=== PATIENT | female | born 1970 | race Caucasian/White ===

== ENCOUNTER 2017-05-07 13:25 | Emergency (ER) | payer BC ==
[~2017-05-07 13:25] MED LIST: ISOVUE-370 76%-LOCM 1 ML ONE
[2017-05-07 15:04] LABS: #Basophils 0.1 thou/uL (0.0-0.2); #Eosinphils 0.5 thou/uL (0.0-0.7); #Lymphocytes 1.9 thou/uL (1.20-3.40); #Monocytes 0.8 thou/uL (0.11-0.59); #Neutrophils 4.1 thou/uL (1.40-6.50); %Basophils 1.1 % (0.0-1.0); %Eosinophils 6.6 % (0.0-10.0); %Lymphocytes 25.6 % (21.0-51.0); %Monocytes 11.1 % (0.0-10.0); %Neutrophils 55.6 % (42.0-75.0); Hemoglobin 12.7 g/dL (12.0-16.0); Mean Corpuscular HGB CONC 33.3 g/dL (32.0-36.0); Mean Corpuscular Volume 87.4 fl (81.0-99.0); Mean Platelet Volume 6.4 fL (7.4-10.4); Platelet Count 345 thou/uL (130-400); RBC Distribution Width 14.4 % (11.5-14.5); Red Blood Cell (RBC) Count 4.38 mill/uL (4.20-5.40); White Blood Cell (WBC) Count 7.4 thou/uL (4.8-10.8)
[2017-05-07 15:21] LABS: ALT (SGPT) 21 U/L (8-55); AST (SGOT) 22 U/L (5-34); Albumin 4.6 g/dL (3.5-5.0); Alkaline Phosphatase 54 U/L (40-150); Anion Gap 13 mmol/L (10-20); BUN (Urea Nitrogen) 18 mg/dL (7.0-18.7); Bilirubin, Total 0.3 mg/dL (0.2-1.2); CK (CPK) 117 U/L (29-168); Calc. Creatinine Clearance 0 mL/min (70-130); Calcium 9.8 mg/dL (7.8-10.44); Carbon Dioxide 22 mmol/L (22-29); Chloride 109 mmol/L (98-107); Estimated GFR-MDRD 71; Globulin 3.5 g/dL (2.4-3.5); Glucose 88 mg/dL (70-105); Protein, Total 8.1 g/dL (6.0-8.3); Sodium 140 mmol/L (136-145)
[2017-05-07 15:25] LABS: CKMB 1.1 ng/mL (0-6.6); Troponin I Less than 0.010 ng/mL (< 0.028)
--- NOTE | 2017-05-07 15:25 | RAD ---
SINGLE VIEW OF THE CHEST: COMPARISON: 08/10/16. HISTORY: Dyspnea. FINDINGS: A single view of the chest shows a normal-size cardiomediastinal silhouette. There is no evidence of consolidation, mass, or pleural effusion. IMPRESSION: No evidence of acute cardiopulmonary disease. POS: [facility]
[2017-05-07] MEDS ORDERED: Ondansetron HCl/PF 4 MG/2 ML Vial ONE (16:42)
--- NOTE | 2017-05-07 18:41 | RAD ---
SOFT TISSUE NECK: History: Throat pain, dyspnea. FINDINGS: There are some minimal arthritic changes of the cervical spine without disc narrowing. No retropharyn geal soft tissue swelling. The epiglottis is difficult to visualize as it is adherent to the adjacent soft tissues but I do not see any signs that would suggest epiglottis. No airway narrowing. IMPRESSION: Unremarkable soft tissue view of the neck. POS: [facility]
[2017-05-07] MEDS ORDERED: methylPREDNISolone Sod Succ/PF 125 MG/2 ML VIAL ONE (19:30)
[2017-05-07] MEDS ORDERED: Famotidine/PF 20 mg/2ml Vial ONE (19:30)
[2017-05-07] MEDS ORDERED: diphenhydrAMINE 50 MG CAP ONE (19:30)
[2017-05-07] MEDS ORDERED: diphenhydrAMINE 50 MG/ML VIAL ONE (19:31)
[2017-05-07 20:18] LABS: Troponin I Less than 0.010 ng/mL (< 0.028)
--- NOTE | 2017-05-07 21:15 | CT ---
ABDOMINAL CT WITH CONTRAST PELVIC CT WITH CONTRAST: Clinical history: Abdominal pain, pancreatitis. Comparison: None. FINDINGS: Evidence of prior cholecystectomy. There is low attenuation of the hepatic parenchyma which can be se en with a hepatic steatosis. Correlate clinically. There is homogeneous enhancement of the pancreas w ithout evidence of peripancreatic inflammation. No adrenal mass or hydronephrosis. Spleen is unremark able. Bowel is incompletely assessed without enteric contrast administration. There is no free air. I gonzález aorta is of normal caliber. Lung bases are clear. Imaged osseous structures are non-acute in ap pearance. There is a focal defect of the posterior medial left kidney which is chronic and may relate to sequellae from prior infarct or other inflammatory event. IMPRESSION: 1. No acute process is identified. 2. Additional details are described above. POS: [facility]
--- NOTE | 2017-05-12 16:58 | EKG ---
Test Reason : Blood Pressure : / mmHG Vent. Rate : 082 BPM Atrial Rate : 082 BPM P-R Int : 144 ms QRS Dur : 090 ms QT Int : 352 ms P-R-T Axes : 031 -15 080 degrees QTc Int : 411 ms Normal sinus rhythm Voltage criteria for left ventricular hypertrophy Nonspecific T wave abnormality Abnormal ECG Confirmed by ELIZABETH GONZALEZ ([id number]), offline editor NORBERTO COVARRUBIAS ([id number]) on 05/12/2017 4:58:21 PM Referred By: Confirmed By:ELIZABETH GONZALEZ
== END 2017-05-07 21:08 | disposition home or self-care (01) ==
LOC: ERS 13:25
DX: R07.89 Other chest pain (principal); J45.909 Unspecified asthma, uncomplicated; E05.90 Thyrotoxicosis, unspecified without thyrotoxic crisis or storm; F41.9 Anxiety disorder, unspecified; Z79.899 Other long term (current) drug therapy
CPT/HCPCS: 36415; 70360; 71045; 74177; 80053; 82550; 82553; 83690; 83880; 84443; 84484; 85025; 85379; 93005; 94760; 96361; 96374; 96375; J1200; J2270; J2405; J2930; S0028

== ENCOUNTER 2017-12-06 09:00 | Outpatient (CLI) | payer BC ==
--- NOTE | 2017-12-06 11:24 | CT ---
CT ABDOMEN WITH AND WITHOUT CONTRAST CT PELVIS WITH AND WITHOUT CONTRAST: (CT UROGRAM) DATE: 12-06-17 HISTORY: 47-year-old female with R31.0 gross hematuria. Comparison: Standard CT abdomen and pelvis with contrast, 05-07-17. Technique: No oral contrast. IV contrast: 100 mL Isovue 370 Precontrast scan, nephrographic/venous phase scan, and pyelographic/expiratory scan, of entire abdome n and pelvis. Coronal reconstruction of the pyelographic/expiratory phase scan. FINDINGS: There is architectural distortion and parenchymal defect at the lower pole of the left kidney, with t hin layer of surgical material. At the upper pole of the left kidney, there is a moderate-sized pare nchymal defect. There is no hydronephrosis or hydroureter. Again noted is the diffusely very low hepa tic attenuation representing fatty liver. No focal solid or cystic hepatic lesion. The abdominal aort a, right kidney, adrenals, pancreas, spleen, urinary bladder, and appendix are normal. No renal, uret eral, or bladder calculus. No solid or cystic renal mass lesion. No colonic diverticulosis. No small bowel dilation. Cholecystectomy clips in the gallbladder fossa. No destructive osseous lesion. No ple ural effusion. No interval change compared to prior CT. IMPRESSION: 1. Left renal upper pole parenchymal defect representing scar, such as from previous infarction or pr ior infection. 2. Left renal lower pole parenchymal defect due to previous surgical partial resection. 3. No evidence of neoplasm oor urolithiasis involving the genitourinary tract. 4. Hepatic steatosis. 5. Status post cholecystectomy. POS: [facility]
== END 2017-12-06 09:01 | disposition home or self-care (01) ==
LOC: CT 09:00
PROVIDERS: ATTEND Urology
DX: R31.0 Gross hematuria (principal); K76.0 Fatty (change of) liver, not elsewhere classified; Z90.49 Acquired absence of other specified parts of digestive tract; N28.9 Disorder of kidney and ureter, unspecified; Z98.890 Other specified postprocedural states
CPT/HCPCS: 74178

== ENCOUNTER 2018-01-23 13:04 | Outpatient (CLI) | payer BC | END 2018-01-23 13:05 | disposition home or self-care (01) | LOC: DTY/OP 13:04 | PROVIDERS: ATTEND Surgery | DX: G47.30 Sleep apnea, unspecified (principal); I10 Essential (primary) hypertension | CPT/HCPCS: 97802 ==

== ENCOUNTER 2018-02-20 14:30 | Inpatient (IN) | payer BC ==
[2018-03-06] MEDS ORDERED: Heparin 5,000 UNITS/ML VIAL ONE (09:25)
[2018-03-06] MEDS ORDERED: CEFAZOLIN 2 GM/50 ML BAG ONE (09:25)
[2018-03-06] MEDS ORDERED: Bupivacaine/Epinephrine 0.25% 30 ML VIAL ONE (10:03)
[2018-03-06] MEDS ORDERED: Fentanyl 100 MCG/2 ML VIAL ONE ×4 (10:05→12:58)
[2018-03-06] MEDS ORDERED: Midazolam HCl 2 mg/2 ml Vial ONE (10:10)
[2018-03-06] MEDS ORDERED: ePHEDrine/0.9% NaCl/PF SYRINGE 50 mg/10 ml ONE (11:07)
[2018-03-06] MEDS ORDERED: Ondansetron PF 4 MG/2 ML Vial ONE (11:07)
[2018-03-06] MEDS ORDERED: Glycopyrrolate 0.2 MG/ML 5 ML SYRINGE ONE (11:07)
[2018-03-06] MEDS ORDERED: Ketorolac Tromethamine 30 MG/ML VIAL ONE (11:07)
[2018-03-06] MEDS ORDERED: PHENYLEPHRINE-NS 100 MCG/ML 10 ML SYRINGE ONE (11:07)
[2018-03-06] MEDS ORDERED: PROPOFOL 200 MG/20 ML VIAL ONE (11:07)
[2018-03-06] MEDS ORDERED: Dexamethasone 20 MG/5 ML VIAL ONE (11:07)
[2018-03-06] MEDS ORDERED: Lidocaine 1% PF 5 ML VIAL ONE (11:07)
[2018-03-06] MEDS ORDERED: Succinylcholine Chloride 20 MG/ML 10 ml SYRINGE FS ONE (11:07)
[2018-03-06] MEDS ORDERED: SUGAMMADEX SODIUM 500 MG/5 ML VIAL ONE ×2 (11:49→12:10)
[2018-03-06] MEDS ORDERED: Dextrose 5% in Water 1,000 ML IV PRN (12:02)
[2018-03-06] MEDS ORDERED: diphenhydrAMINE 50 MG/ML VIAL IVP PRN ×2 (12:02→12:40)
[2018-03-06] MEDS ORDERED: Ondansetron PF 4 MG/2 ML Vial IVP PRN ×2 (12:02→12:40)
[2018-03-06] MEDS ORDERED: Hydrocodone-Acetamin 15 ML UDCUP PO PRN (12:02)
[2018-03-06] MEDS ORDERED: hydrALAZINE 20 MG/ML VIAL SLOW IVP PRN (12:02)
[2018-03-06] MEDS ORDERED: Dextrose 50% Abboject 50 ML SYRINGE SLOW IVP PRN (12:02)
[2018-03-06] MEDS ORDERED: Zolpidem Tartrate 5 MG TAB PO PRN (12:40)
[2018-03-06] MEDS ORDERED: fentaNYL Citrate/PF 2,000 MCG in Sodium Chloride 0.9% 60 ML IV PRN (12:40)
[2018-03-06] MEDS ORDERED: Ondansetron HCl/PF 4 MG/2 ML Vial IVP PRN (12:40)
[2018-03-06] MEDS ORDERED: diphenhydrAMINE 25 MG CAP PO PRN (12:40)
[2018-03-06] MEDS ORDERED: Naloxone HCl 0.4 mg/ml Vial IV PRN (12:40)
[2018-03-06] MEDS ORDERED: diphenhydrAMINE 50 MG/ML VIAL IM PRN (12:40)
[2018-03-06] MEDS ORDERED: Communication Order-Pharmacy FS SCH (12:45)
[2018-03-06 14:12] VITALS: BMI 42.0
[2018-03-06] MEDS: D5 1/2 NS w/20 mEq KCL 1,000 ML IV SCH ×2 (16:39→21:41)
[2018-03-06] MEDS: CEFAZOLIN 2 GM/50 ML BAG IVPB SCH (16:40)
[2018-03-06] MEDS: Ketorolac Tromethamine 30 MG/ML VIAL IVP SCH ×2 (16:43→23:09)
[2018-03-07] MEDS: CEFAZOLIN 2 GM/50 ML BAG IVPB SCH (01:05)
[2018-03-07] MEDS: D5 1/2 NS w/20 mEq KCL 1,000 ML IV SCH ×2 (03:16→09:40)
[2018-03-07 05:38] LABS: #Lymphocytes 1.6 thou/uL (1.20-3.40); #Monocytes 0.8 thou/uL (0.11-0.59); #Neutrophils 5.3 thou/uL (1.40-6.50); %Basophils 0.2 % (0.0-1.0); %Eosinophils 0.2 % (0.0-10.0); %Lymphocytes 20.3 % (21.0-51.0); %Monocytes 10.2 % (0.0-10.0); %Neutrophils 69.2 % (42.0-75.0); Hemoglobin 11.5 g/dL (12.0-16.0); Mean Corpuscular Hemoglobin 29.4 pg (27.0-31.0); Mean Corpuscular Volume 88.8 fL (78.0-98.0); Mean Platelet Volume 6.8 fL (7.4-10.4); Platelet Count 294 thou/uL (130-400); RBC Distribution Width 14.1 % (11.5-14.5); Red Blood Cell (RBC) Count 3.92 mill/uL (4.20-5.40); White Blood Cell (WBC) Count 7.7 thou/uL (4.8-10.8)
[2018-03-07 05:49] LABS: Anion Gap 10 mmol/L (10-20); BUN (Urea Nitrogen) 7 mg/dL (7.0-18.7); Calc. Creatinine Clearance 140 mL/min (70-130); Calcium 8.8 mg/dL (7.8-10.44); Carbon Dioxide 27 mmol/L (22-29); Chloride 105 mmol/L (98-107); Estimated GFR-MDRD 78; Glucose 108 mg/dL (70-105); Potassium 3.9 mmol/L (3.5-5.1); Sodium 138 mmol/L (136-145)
[2018-03-07] MEDS: Ketorolac Tromethamine 30 MG/ML VIAL IVP SCH (06:29)
[2018-03-07] MEDS ORDERED: Pantoprazole 40 MG VIAL IVP SCH (09:00)
[2018-03-07] MEDS ORDERED: Enoxaparin Sodium 40 MG/0.4 ML SYRINGE SC SCH (09:00)
[2018-03-07] MEDS ORDERED: diphenhydrAMINE 50 MG/ML VIAL IVP SCH (10:00)
[2018-03-07] MEDS ORDERED: Famotidine/PF 20 mg/2ml Vial IVPB SCH (10:00)
[2018-03-07 11:31] VITALS: BP 102/57; TEMP 97.9
--- NOTE | 2018-03-08 10:59 | DIS ---
DATE OF ADMISSION: 03/06/2018 DATE OF DISCHARGE: 03/07/2018 DISCHARGE DIAGNOSIS: Morbid obesity. PROCEDURES DURING ADMISSION: Laparoscopic sleeve gastrectomy and intraoperative esophagogastroscopy. HOSPITAL COURSE: The patient was admitted, taken to the operating room, where she underwent sleeve gastrectomy. Postoperatively, she has done well. She is tolerating liquids well. Her pain is controlled on oral medications. Vital signs are fine. We did not do the Gastrografin swallow due to her severe iodine allergy including shellfish allergy, so rather than put her to that risk and since she was doing well, elected not to do that procedure. Again, she is tolerating liquids well. She is discharged home on hydrocodone and Zofran. She will follow up with me in 2 weeks. Job ID: [id number]
--- NOTE | 2018-03-08 14:31 | OP ---
DATE OF PROCEDURE: 03/06/2018 PREOPERATIVE DIAGNOSIS: Morbid obesity. PROCEDURES PERFORMED: Laparoscopic lysis of adhesions, sleeve gastrectomy, and esophagogastroscopy. INDICATIONS FOR PROCEDURE: A 47-year-old female, morbidly obese, who was attempted multiple weight loss programs without success. FINDINGS: She had extensive intra-abdominal adhesions due to a laparoscopic partial nephrectomy, cholecystectomy, and a previous hysterectomy. A 38-Swiss bougie was used. DESCRIPTION OF PROCEDURE: After informed consent was obtained, the patient was taken to the operating room, given general endotracheal anesthesia, placed in the supine position. Abdomen was prepped and draped in the usual fashion. Local anesthesia was infiltrated subcutaneously and deep. A 12 mm incision was performed approximately 8 inches below the xiphoid slight to the left. Veress needle was inserted. Drop test performed. Pneumoperitoneum was carried to a volume of 2 L of carbon dioxide. Utilizing a bladeless 12 mm trocar and 0 degree laparoscope, direct visual examination of the abdominal cavity was performed. Pneumoperitoneum was then created to a pressure of 15 mmHg and the patient was placed in steep reverse Trendelenburg position. The abdominal wall was completely socked in with adhesions, so I had to put an extra 5 mm port in the right upper quadrant to take down adhesions from the abdominal wall, so that I could put the trocars in. Once the adhesions were all lysed, we put a 12 mm port 8 cm below the xiphoid slight to the left and then another 12 mm port in the left upper quadrant, left lateral abdomen and then we already had the right lateral abdomen, but because of the lysis of adhesions, trocar positioning was a little off. The patient was placed in steep reverse Trendelenburg position. Henrik liver retractor inserted. The left lobe of the liver retracted superiorly. The omentum was taken off the greater curvature 5 cm from the pylorus utilizing a LigaSure. Short gastrics divided with a LigaSure. defined with a LigaSure. A 38-Swiss bougie inserted directed into the antrum. The linear 60 mm green load stapler used to divide the antrum to the bougie, gold load along the bougie, and a series of bougies through the angle of His. Intraoperative endoscopy was performed. A video endoscope inserted under direct vision and advanced into the sleeve. The staple line inspected. There was no bleeding. Staple line then tested by inflating the new stomach with pressurized there was no air leak. Stomach was decompressed. Scope was removed. Remnants of the stomach were removed from the abdomen through the left lateral port site. The fascia was closed with 0 Vicryl suture in the GraNee needle. Hemostasis assured. The abdomen irrigated. Irrigation fluid removed. Trocars and retractors were removed. Skin was closed with interrupted 4-0 Rapide. Dermabond was applied. The patient tolerated the procedure well, transferred to recovery in good condition. Job ID: [id number]
== END 2018-03-07 15:08 | disposition home or self-care (01) | DRG 621 ==
LOC: SURG A 03-06 08:49 → SJJU 03-06 13:44
PROVIDERS: ADMIT Surgery; ATTEND Surgery
PROC: 0DB64Z3 Excision of Stomach, Percutaneous Endoscopic Approach, Vertical (ICD-10-PCS; principal; 2018-03-06)
DX: E66.01 Morbid (severe) obesity due to excess calories (principal); Z91.041 Radiographic dye allergy status; Z91.013 Allergy to seafood; Z68.41 Body mass index [BMI] 40.0-44.9, adult; I10 Essential (primary) hypertension
CPT/HCPCS: 36415; 80048; 85025; 88307; 88312; 94760; C9113; J1100; J1644; J1650; J1885; J2001; J2250; J2405; J2704; J2920; J3010; J7050

== ENCOUNTER 2018-02-20 14:54 | Outpatient (CLI) | payer BC ==
[2018-02-20 16:29] LABS: #Eosinphils 0.3 thou/uL (0.0-0.7); #Lymphocytes 2.2 thou/uL (1.20-3.40); #Monocytes 0.8 thou/uL (0.11-0.59); #Neutrophils 5.9 thou/uL (1.40-6.50); %Basophils 0.4 % (0.0-1.0); %Eosinophils 3.7 % (0.0-10.0); %Lymphocytes 23.3 % (21.0-51.0); %Monocytes 8.6 % (0.0-10.0); Hemoglobin 12.5 g/dL (12.0-16.0); Mean Corpuscular HGB CONC 31.3 g/dL (32.0-36.0); Mean Corpuscular Hemoglobin 27.9 pg (27.0-31.0); Mean Corpuscular Volume 89.1 fL (78.0-98.0); Mean Platelet Volume 6.7 fL (7.4-10.4); Platelet Count 367 thou/uL (130-400); RBC Distribution Width 14.1 % (11.5-14.5); Red Blood Cell (RBC) Count 4.49 mill/uL (4.20-5.40); White Blood Cell (WBC) Count 9.3 thou/uL (4.8-10.8)
[2018-02-20 16:42] LABS: Hemoglobin A1c 6.4 % (4.0-6.0)
[2018-02-20 17:02] LABS: ALT (SGPT) 19 U/L (8-55); AST (SGOT) 18 U/L (5-34); Albumin 4.4 g/dL (3.5-5.0); Alkaline Phosphatase 68 U/L (40-150); Anion Gap 11 mmol/L (10-20); BUN (Urea Nitrogen) 21 mg/dL (7.0-18.7); Bilirubin, Direct 0.1 mg/dL (0.1-0.3); Bilirubin, Total 0.3 mg/dL (0.2-1.2); Calc. Creatinine Clearance 0 mL/min (70-130); Calcium 9.3 mg/dL (7.8-10.44); Carbon Dioxide 25 mmol/L (22-29); Chloride 107 mmol/L (98-107); Estimated GFR-MDRD 76; Globulin 3.4 g/dL (2.4-3.5); Glucose 94 mg/dL (70-105); Protein, Total 7.8 g/dL (6.0-8.3); Sodium 139 mmol/L (136-145)
--- NOTE | 2018-02-20 17:28 | RAD ---
TWO VIEW CHEST SERIES: 02/20/18 INDICATION: Preoperative evaluation. FINDINGS: The lungs are hypoinflated without consolidation. No effusion or pneumothorax. The cardiac silhouette is accentuated by shallow depth of inspiration. There is degenerative changes of the osseous structu res. Metallic clips seen at the right abdomen. IMPRESSION: Shallow depth of inspiration without lobar consolidation. POS: [facility]
== END 2018-02-20 14:55 | disposition home or self-care (01) ==
LOC: LABBT 14:54
PROVIDERS: ATTEND Surgery
DX: Z01.818 Encounter for other preprocedural examination (principal); E66.01 Morbid (severe) obesity due to excess calories
CPT/HCPCS: 71046; 80053; 80076; 83036; 85025

== ENCOUNTER 2018-07-10 08:27 | Outpatient (CLI) | payer BC ==
--- NOTE | 2018-07-16 13:34 | MMO ---
Bilateral MAMMO Bilat Screen [facility]. CLINICAL HISTORY: Patient is 48 years old and is seen for screening. The patient has the following family history of breast cancer: maternal aunt, at age 60. The patient has no personal history of cancer. VIEWS: The views performed were: bilateral craniocaudal with tomosynthesis and bilateral mediolateral oblique with tomosynthesis. FILMS COMPARED: The present examination has been compared to prior imaging studies performed at 07/03/2017, and at [facility] on 12/05/2005, 12/14/2005 and 07/22/2010. MAMMOGRAM FINDINGS: There are scattered fibroglandular densities. There are no suspicious masses, suspicious calcifications, or new areas of architectural distortion. IMPRESSION: THERE IS NO MAMMOGRAPHIC EVIDENCE OF MALIGNANCY. A ROUTINE FOLLOW-UP MAMMOGRAM IN 1 YEAR IS RECOMMENDED. THE RESULTS OF THIS EXAM WERE SENT TO THE PATIENT. ACR BI-RADS Category 1 - Negative MAMMOGRAPHY NOTE: 1. A negative mammogram report should not delay a biopsy if a dominant of clinically suspicious mass is present. 2. Approximately 10% to 15% of breast cancers are not detected by mammography. 3. Adenosis and dense breasts may obscure an underlying neoplasm.
== END 2018-07-10 08:28 | disposition home or self-care (01) ==
LOC: BICMAMMO 08:27
PROVIDERS: ATTEND Internal Medicine
DX: Z12.31 Encounter for screening mammogram for malignant neoplasm of breast (principal); Z80.3 Family history of malignant neoplasm of breast
CPT/HCPCS: 77063; 77067

== ENCOUNTER 2018-08-15 13:32 | Outpatient (CLI) | payer BC ==
--- NOTE | 2018-08-15 13:47 | RAD ---
CHEST 2 VIEWS: Date: 08/15/18 HISTORY: Preoperative evaluation. COMPARISON: 02/20/18. FINDINGS: Heart size is within normal limits. Lungs are clear. IMPRESSION: No acute intrathoracic disease. Stable from prior study. POS: [facility]
== END 2018-08-15 13:33 | disposition home or self-care (01) ==
LOC: RAD 13:32
PROVIDERS: ATTEND Internal Medicine
DX: R06.00 Dyspnea, unspecified (principal)
CPT/HCPCS: 71046

== ENCOUNTER 2019-01-26 12:15 | Inpatient (IN) | payer BC ==
[2019-01-26 13:04] LABS: #Basophils 0.1 thou/uL (0.0-0.2); #Eosinphils 0.3 thou/uL (0.0-0.7); #Lymphocytes 2.2 thou/uL (1.20-3.40); #Monocytes 0.7 thou/uL (0.11-0.59); %Basophils 1.3 % (0.0-1.0); %Eosinophils 5.2 % (0.0-10.0); %Lymphocytes 34.6 % (21.0-51.0); %Monocytes 10.6 % (0.0-10.0); %Neutrophils 48.3 % (42.0-75.0); Hemoglobin 12.5 g/dL (12.0-16.0); Mean Corpuscular HGB CONC 33.6 g/dL (32.0-36.0); Mean Corpuscular Hemoglobin 30.6 pg (27.0-31.0); Mean Platelet Volume 6.6 fL (7.4-10.4); Platelet Count 294 thou/uL (130-400); RBC Distribution Width 11.8 % (11.5-14.5); Red Blood Cell (RBC) Count 4.08 mill/uL (4.20-5.40); White Blood Cell (WBC) Count 6.3 thou/uL (4.8-10.8)
[2019-01-26 13:18] LABS: ALT (SGPT) 10 U/L (8-55); AST (SGOT) 12 U/L (5-34); Albumin 4.4 g/dL (3.5-5.0); Alkaline Phosphatase 58 U/L (40-110); Anion Gap 11 mmol/L (10-20); BUN (Urea Nitrogen) 11 mg/dL (7.0-18.7); Bilirubin, Total 0.3 mg/dL (0.2-1.2); CK (CPK) 88 U/L (29-168); Calc. Creatinine Clearance 0 mL/min (70-130); Calcium 9.5 mg/dL (7.8-10.44); Carbon Dioxide 24 mmol/L (22-29); Chloride 107 mmol/L (98-107); Estimated GFR-MDRD Greater than 90; Globulin 3.1 g/dL (2.4-3.5); Glucose 72 mg/dL (70-105); Potassium 3.7 mmol/L (3.5-5.1); Protein, Total 7.5 g/dL (6.0-8.3); Sodium 138 mmol/L (136-145)
--- NOTE | 2019-01-26 14:07 | RAD ---
RADIOGRAPH CHEST 1 VIEW: DATE: 01/26/2019 HISTORY: 48-year-old female with chest pain FINDINGS: There are no airspace densities, pulmonary edema, pneumothorax, or cardiomegaly. The lateral costophr enic angles are sharp. IMPRESSION: No acute cardiopulmonary findings.
[2019-01-26] MEDS ORDERED: Aspirin Chewable 81 MG TAB ONE (14:25)
[2019-01-26] MEDS ORDERED: Ondansetron ODT 4 MG TAB SL PRN (16:04)
[2019-01-26] MEDS ORDERED: Ondansetron PF 4 MG/2 ML Vial IVP PRN (16:04)
[2019-01-26 16:27] VITALS: BMI 34.4
[2019-01-26] MEDS: Sodium Chloride 0.9% 1,000 ML IV SCH (17:01)
[2019-01-26 17:06] LABS: Troponin I Less than 0.010 ng/mL (< 0.028)
[2019-01-26 19:58] LABS: Troponin I Less than 0.010 ng/mL (< 0.028)
[2019-01-26] MEDS ORDERED: Acetaminophen 325 MG TAB PO PRN (20:44)
[2019-01-26] MEDS ORDERED: Lorazepam 0.5 MG TAB PO SCH (23:30)
[2019-01-27] MEDS: Sodium Chloride 0.9% 1,000 ML IV SCH ×3 (03:57→22:31)
[2019-01-27] MEDS ORDERED: Senokot S 8.6-50 MG TAB PO PRN (08:45)
[2019-01-27] MEDS ORDERED: FLU VACC QS2019-20(6MOS UP)/PF 60 MCG/0.5 ML SYRINGE IM ONE (09:00)
[2019-01-27 09:03] LABS: #Basophils 0.1 thou/uL (0.0-0.2); #Eosinphils 0.3 thou/uL (0.0-0.7); #Lymphocytes 1.6 thou/uL (1.20-3.40); #Monocytes 0.3 thou/uL (0.11-0.59); #Neutrophils 2.2 thou/uL (1.40-6.50); %Basophils 1.5 % (0.0-1.0); %Eosinophils 5.9 % (0.0-10.0); %Lymphocytes 35.9 % (21.0-51.0); %Monocytes 6.9 % (0.0-10.0); %Neutrophils 49.7 % (42.0-75.0); Hemoglobin 11.8 g/dL (12.0-16.0); Mean Corpuscular HGB CONC 32.9 g/dL (32.0-36.0); Mean Corpuscular Hemoglobin 29.9 pg (27.0-31.0); Mean Platelet Volume 6.5 fL (7.4-10.4); Platelet Count 271 thou/uL (130-400); RBC Distribution Width 11.7 % (11.5-14.5); Red Blood Cell (RBC) Count 3.94 mill/uL (4.20-5.40); White Blood Cell (WBC) Count 4.4 thou/uL (4.8-10.8)
[2019-01-27 09:17] LABS: Anion Gap 10 mmol/L (10-20); BUN (Urea Nitrogen) 8 mg/dL (7.0-18.7); Calc. Creatinine Clearance 141 mL/min (70-130); Calcium 9.3 mg/dL (7.8-10.44); Carbon Dioxide 26 mmol/L (22-29); Cardiac Risk 2.6 (Less than 4.5); Chloride 108 mmol/L (98-107); Cholesterol 179 mg/dl (< 200 Desired); Estimated GFR-MDRD Greater than 90; Glucose 78 mg/dL (70-105); HDL Cholesterol 68 mg/dL (>60 Neg Risk); LDL Cholesterol, Calculated 90 mg/dL; Potassium 3.8 mmol/L (3.5-5.1); Sodium 140 mmol/L (136-145); Triglycerides 107 mg/dL (Less than 150)
[2019-01-27] MEDS: Enoxaparin Sodium 40 MG/0.4 ML SYRINGE SC SCH (09:38)
[2019-01-27] MEDS: Famotidine 20 MG TAB PO SCH ×2 (09:38→20:48)
--- NOTE | 2019-01-27 15:12 | HP ---
The patient was seen and evaluated on 01/27/2019, at 0800. PRIMARY CARE PHYSICIAN: Dr. Joyner. AUTOMOTIVE TECHNICIAN INSTRUCTOR: Dr. Borden. CHIEF COMPLAINT: Chest pain, lightheadedness, blurred vision. HISTORY OF PRESENT ILLNESS: Ms. Sainz is a 48-year-old female, who reported to the emergency room on 01/26/2019, for evaluation of chest pain. Reports that she has been feeling lightheaded, has had blurred vision on and off for several weeks. Reports chest pain to left upper chest, and reports that her blood pressure was low at home when she took it. Reports that she was given medication for hypertension in the past, but has not had to take it for several months. Reports that she has had a gastric sleeve surgery and has lost approximately 50 pounds in the last year. The patient reports that she has had a heart catheterization 5 years ago and does report that Dr. Joyner had sent her to Dr. Borden in the next couple of weeks to have the chest pain, lightheadedness, and dizziness evaluated. EKG in the emergency room showed normal sinus rhythm, beats per minute 60, conduction normal, nonspecific EKG, moderate voltage criteria for LVH. Chest films are negative for any acute findings. The patient had a heart score of 5, admitted to the observation unit for further management. REVIEW OF SYSTEMS: Reports chest pains. Denies any dyspnea or dyspnea on exertion. Denies cough, shortness of breath, or wheezing. Denies abdominal pain. Reports dizziness or lightheadedness. Denies a headache. Reports history of anxiety. Reports chest pain radiates to both arms. Reports right arm pain. All other systems are reviewed and are negative unless mentioned in the HPI. PAST MEDICAL HISTORY: coronary artery disease, COPD, asthma. Past medical history of hypertension, medication has been stopped. PAST SURGICAL HISTORY: Partial kidney removal on the left, cholecystectomy, hysterectomy, orthopedic surgery on the left knee, and gastric sleeve surgery. PSYCHIATRIC HISTORY: Anxiety. SOCIAL HISTORY: Denies any drug or alcohol. No smoking history. KNOWN ALLERGIES: 1. Celebrex. 2. Shellfish. 3. Sumatriptan. CURRENT MEDICATIONS: 1. Biotin 5000 mcg p.o. daily. 2. Calcium 1 tablet p.o. daily. 3. Vitamin D3 of 5000 units p.o. daily. 4. EpiPen 0.3 mg IM p.r.n. 5. Estrace 1 mg p.o. daily. 6. Fenofibrate 145 mg p.o. at bedtime. 7. Breo 1 inhalation p.o. p.r.n. 8. Levothyroxine 175 mcg p.o. q.a.m. 9. Lorazepam 0.5 to 1 tablet p.o. at bedtime. 10. Multivitamin 1 tablet p.o. daily. 11. Protonix 40 mg p.o. daily. PHYSICAL EXAMINATION: VITAL SIGNS: Temperature is 98.8, pulse is 56, respirations are 20, pO2 saturations are 98% on room air, blood pressure 125/58. CONSTITUTIONAL: The patient is oriented to person, place, and time. Does not appear in any distress. HEENT: Head is atraumatic and normocephalic. Pupils are equally round and reactive to light. Eyelids are normal to inspection. ENT; mouth exam is normal. Mucous membranes are moist. NECK: Normal range of motion. Trachea is midline. RESPIRATORY/CHEST: Breath sounds are clear. Chest expansion is equal. CARDIOVASCULAR: Regular heart rate and rhythm. Heart sounds are normal. ABDOMEN: Soft and nontender. Bowel sounds are heard. No peritoneal signs. BACK: Normal range of motion. No tenderness. EXTREMITIES: Upper extremities; normal inspection. Normal range of motion. Radial pulses are normal. Lower extremities; normal inspection. No calf tenderness. On inspection, there are normal pulses. Pedal pulses are intact. There is no edema noted. NEUROLOGIC: The patient is oriented to person, place, and time. Speech is normal. SKIN: Warm, dry, and normal in color. PERTINENT LABORATORY DATA: White blood cell count 6.3, hemoglobin 12.5, hematocrit 37.1, platelet count 294. D-dimer less than 0.27. Chemistry is unremarkable. Troponins x3 are undetectable. ASSESSMENT AND PLAN: 1. Chest pain. The patient had sustained bradycardia during this hospitalization with pulse in the 40s. Troponins x3 were undetectable. EKG was nonspecific; however, we will ask Dr. Borden to consult. The patient reports that she has had an appointment with Dr. Borden in February, but due to the bradycardia, we will ask his recommendations prior to ordering a stress test, etc. 2. . We will check a TSH and free T4. 3. Asthma/chronic obstructive pulmonary disease. We will restart home medications, neb treatments p.r.n. as needed. 4. Anxiety. Restart home medications. She takes lorazepam p.o. at bedtime. 5. Deep venous thrombosis and gastrointestinal prophylaxes have been started. 6. Hospital course dependent on clinical findings. Job ID: [id number]
--- NOTE | 2019-01-27 15:53 | NM ---
Stress only myocardial perfusion scan: 01/27/2019 COMPARISON: None HISTORY: Chest pain TECHNIQUE: SPECT imaging of the left ventricular myocardium obtained during stress following the intr avenous administration of 28.8 mCi technetium 99m labeled sestamibi. FINDINGS: Stress imaging demonstrates no perfusion defect. Left ventricular wall motion is normal. Le ft ventricular ejection fraction is estimated at 67% with an EDV of 99 mL and ESV of 32 mL. IMPRESSION: Unremarkable stress only myocardial perfusion scan.
--- NOTE | 2019-01-27 16:41 | CON ---
DATE OF CONSULTATION: HISTORY OF PRESENT ILLNESS: The patient is a 48-year-old woman, who presents for evaluation of chest discomfort and dizziness. The patient was seen for evaluation of chest pain in June of 2016. She underwent at that time a cardiac evaluation including cardiac catheterization that revealed normal left ventricular systolic function with a mildly dilated ventricle. She also was found to have normal coronary arteries. The patient subsequently underwent a bariatric surgery approximately a year ago. The patient reports that she subsequently has continued to have left-sided chest discomfort. This can last up to 30 minutes. The patient states that it occurs on a frequent basis. The patient was tried in the past on Ranexa, which did not seem to help her discomfort. The patient also reports being very lightheaded and dizzy. She states that whenever her blood pressure is low , she feels extremely weak. PAST MEDICAL HISTORY: 1. Hypertension. 2. Asthma. 3. Migraine headaches. 4. Fatty liver disease. 5. Anxiety. PAST SURGICAL HISTORY: Cholecystectomy, hysterectomy, lap band surgery, laparoscopic nephrectomy, and arthroscopy. ALLERGIES: CELEBREX, IODINE, AND FOR ANTI-MIGRAINE HEADACHES. FAMILY HISTORY: There is a strong family history of heart disease. REVIEW OF SYSTEMS: A 10-point system is otherwise unremarkable except for noticing increasing dyspnea. PHYSICAL EXAMINATION: VITAL SIGNS: Her sitting blood pressure 131/63, standing was 131/64, and supine was 141/67. GENERAL: This is an obese woman, who is anxious with a blood pressure of 100/ 55. NECK: Showed no jugular venous distention. LUNGS: Clear to auscultation. HEART: Regular rate and rhythm. Normal S1 and S2. No murmurs. ABDOMEN: Distended. EXTREMITIES: Showed trace edema. VASCULAR: Radial pulses are 2+. LABORATORY DATA: Sodium was 140, potassium 3.8, chloride 108, bicarbonate 26, BUN 10, creatinine was 0.66. Her TSH was 0.03. Her white blood cell count is 4.4, hemoglobin 11.8, hematocrit 35.9, platelets 271. EKG revealed her to have normal sinus rhythm with moderate voltage criteria for LVH and T-wave abnormality suggestive of ischemia. IMPRESSION: 1. Chest pain with some features suggestive of angina. 2. Dizziness suggestive of orthostasis. 3. History of normal coronary arteries. 4. History of anxiety. 5. Hypotension. PLAN: This patient presents with chest discomfort. EKG shows a slight change from a previous electrocardiogram. Her chest pain has some features suggestive of angina. We would recommend stress testing to see if there is any evidence of ischemia. The patient also was very lightheaded and dizzy. She has shown mild bradycardia on her telemetry monitoring. We will continue to follow. We will recheck orthostatic blood pressures. We will follow this patient with you through her hospitalization. Job ID: [id number] MTDD
[2019-01-27] MEDS: Acetaminophen 325 MG TAB PO PRN ×2 (18:26→22:30)
[2019-01-27] MEDS ORDERED: Regadenoson 0.4 MG/5 ML SYRINGE ONE (20:25)
[2019-01-27] MEDS: Lorazepam 0.5 MG TAB PO SCH (20:48)
[2019-01-28 05:29] LABS: #Basophils 0.1 thou/uL (0.0-0.2); #Eosinphils 0.4 thou/uL (0.0-0.7); #Lymphocytes 1.8 thou/uL (1.20-3.40); #Monocytes 0.4 thou/uL (0.11-0.59); %Basophils 1.1 % (0.0-1.0); %Eosinophils 7.1 % (0.0-10.0); %Lymphocytes 31.6 % (21.0-51.0); %Neutrophils 53.2 % (42.0-75.0); Mean Corpuscular HGB CONC 33.9 g/dL (32.0-36.0); Mean Corpuscular Hemoglobin 30.8 pg (27.0-31.0); Mean Corpuscular Volume 90.8 fL (78.0-98.0); Mean Platelet Volume 6.6 fL (7.4-10.4); Platelet Count 274 thou/uL (130-400); RBC Distribution Width 11.7 % (11.5-14.5); Red Blood Cell (RBC) Count 3.88 mill/uL (4.20-5.40); White Blood Cell (WBC) Count 5.7 thou/uL (4.8-10.8)
[2019-01-28 05:47] LABS: Anion Gap 10 mmol/L (10-20); BUN (Urea Nitrogen) 10 mg/dL (7.0-18.7); Calc. Creatinine Clearance 133 mL/min (70-130); Calcium 9.2 mg/dL (7.8-10.44); Carbon Dioxide 26 mmol/L (22-29); Chloride 108 mmol/L (98-107); Estimated GFR-MDRD 89; Glucose 75 mg/dL (70-105); Potassium 3.9 mmol/L (3.5-5.1); Sodium 140 mmol/L (136-145)
[2019-01-28] MEDS: Levothyroxine 175 MCG TAB PO SCH (06:21)
[2019-01-28] MEDS: Estradiol 1 MG TAB PO SCH (09:40)
[2019-01-28] MEDS: Enoxaparin Sodium 40 MG/0.4 ML SYRINGE SC SCH (09:40)
[2019-01-28] MEDS: Famotidine 20 MG TAB PO SCH ×2 (09:40→21:10)
[2019-01-28] MEDS: Acetaminophen 325 MG TAB PO PRN ×3 (10:30→21:10)
--- NOTE | 2019-01-28 14:23 | PDOC.HOSPP ---
- Subjective Encounter Date: 01/28/19 Encounter Time: 14:22 Subjective: in the stress test - Objective Vital Signs & Weight: Vital Signs (12 hours) Temp Pulse Resp BP BP BP BP 01/28/19 11:31 98 F 50 L 16 01/28/19 10:05 55 L 114/58 L 118/56 L 01/28/19 07:11 98.1 F 62 14 123/69 01/28/19 04:30 62 18 109/56 L BP Pulse Ox 01/28/19 11:31 100 01/28/19 10:05 122/58 L 01/28/19 07:11 99 01/28/19 04:30 98 Weight Weight 188 lb 4.8 oz I&O: 01/27/19 01/28/19 01/29/19 06:59 06:59 06:59 Intake Total 1600 1540 Balance 1600 1540 Result Diagrams: 01/28/19 04:52 01/28/19 04:52 Hospitalist ROS - Medication Medications: Active Medications Generic Name Dose Route Start Last Admin Trade Name Lazq PRN Reason Stop Dose Admin Acetaminophen 650 mg 01/27/19 08:45 01/28/19 10:30 Tylenol PO 650 mg Q4H PRN Administration Headache/Fever/Mild Pain (1-3) Enoxaparin Sodium 40 mg 01/27/19 09:00 01/28/19 09:40 Lovenox SC 40 mg 0900 AMANUEL Administration Estradiol 1 mg 01/28/19 09:00 01/28/19 09:40 Estrace PO 1 mg DAILY AMANUEL Administration Famotidine 20 mg 01/27/19 09:00 01/28/19 09:40 Pepcid PO 20 mg BID AMANUEL Administration Levothyroxine Sodium 175 mcg 01/28/19 06:00 01/28/19 06:21 Synthroid PO 175 mcg 0600 AMANUEL Administration Lorazepam 0.5 mg 01/27/19 21:00 01/27/19 20:48 Ativan PO 0.5 mg HS AMANUEL Administration Pantoprazole Sodium 40 mg 01/28/19 09:00 01/28/19 09:40 Protonix PO 40 mg DAILY AMANUEL Administration Sodium Chloride 10 ml 01/27/19 09:00 01/28/19 09:41 Flush - Normal Saline IVF Not Given Q12HR AMANUEL - Exam General Appearance: NAD, awake alert, ill appearing Eye: PERRL, anicteric sclera, scleral icterus ENT: normocephalic atraumatic, no oropharyngeal lesions, moist mucosa, dry oral mucosa Neck: supple, symmetric, no JVD, no thyromegaly, no lymphadenopathy, no carotid bruit, JVD Heart: RRR, no murmur, no gallops, no rubs, normal peripheral pulses, irregular , diminshed peripheral pulses, murmur present, II/IV, III/IV Respiratory: CTAB, no wheezes, no rales, no ronchi, normal chest expansion, no tachypnea, normal percussion, rales, rhonchi, tachypneic, wheezes Gastrointestinal: soft, non-tender, non-distended, normal bowel sounds, no palpable masses, no hepatomegaly, no splenomegaly, no bruit, no guarding, no rigidity, tender to palpation, distended, diminished bowl sounds, voluntary guarding Extremities: no cyanosis, no clubbing, no edema, 1+ LE edema, 2+ LE edema, clubbing Skin: normal turgor, no lesions, no rashes, tenting Neurological: cranial nerve grossly intact, normal sensation to touch, no weakness, no focal deficits, no new deficit, facial droop, hemiplegia, speech deficit, vision deficit Musculoskeletal: normal tone, normal strength, no muscle wasting, generalized weakness, diffuse muscle atrophy Hosp A/P (1) Chest pain Code(s): R07.9 - CHEST PAIN, UNSPECIFIED Status: Acute (2) Bradycardia Code(s): R00.1 - BRADYCARDIA, UNSPECIFIED Status: Acute - Plan plan discussed w/ family (await stress test, further planning as per cardiology)
[2019-01-28] MEDS: Midodrine HCl 5 MG TAB PO SCH ×2 (14:36→21:10)
[2019-01-28] MEDS ORDERED: Citalopram 20 MG TAB PO SCH (16:45)
--- NOTE | 2019-01-28 17:46 | CON ---
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 Her problems are; 1. Chronotropic incompetence. a. Marked bradycardia in absence of AV mary blocking and negative chronotropic agents in the 40-50s. 2. Orthostatic hypotension. 3. No history of structural heart disease with negative left heart catheterization in 06/2016, normal LVEF, mildly dilated left ventricle. 4. History of morbid obesity status post gastric bypass surgery. 5. Migraine headaches. 6. Fatty liver disease. 7. History of asthma. 8. Anxiety. ALLERGIES: CELEBREX AND IODINE. MEDICATIONS AT HOME: 1. Levothyroxine. 2. Lorazepam. 3. Estradiol. 4. EpiPen. 5. Fenofibrate. 6. Cholecalciferol. 7. Fluticasone. 8. Pantoprazole. 9. Multivitamin. 10. Calcium. 11. Biotin. SUBJECTIVE: Ms. Sainz is here due to her chest discomfort and dizziness. She was evaluated by Dr. Borden with a nuclear stress test and was found to be negative. While on the floor, she continues to complain of significant malaise, fatigue, and dizziness spell. She does not pass out completely. She has no neurological deficits. No focalizing symptoms. No stroke-like symptoms. No PND or orthopnea. REVIEW OF SYSTEMS: Rest of 12-point review of system otherwise unremarkable. PAST HISTORY: Significant for; 1. COPD. 2. Asthma. 3. Morbid obesity. 4. Hypertension, which in the past she has not been on medications for that reason she has low blood pressures. SURGICAL HISTORY: Significant for; 1. Partial kidney removal in a left. 2. Cholecystectomy. 3. Hysterectomy. 4. Orthopedic surgery on the left knee. 5. Gastric sleeve surgery with subsequent 50-pound weight loss last year. SOCIAL HISTORY: The patient denies smoking, EtOH, or drug abuse. OBJECTIVE DATA: VITAL SIGNS: Blood pressure is 114/58 sitting, standing 118/56 , and supine 122/58, blood pressures ranging 109/56 down to 98/56 are noted. GENERAL: An alert and oriented woman, in no apparent distress. NECK: Supple. Jugular veins not distended. CHEST: Coarse without crackles. HEART: Sounds are regular rate and rhythm. No murmur or gallop. ABDOMEN: Benign. Bowel sounds positive. EXTREMITIES: Lower extremities without edema, clubbing, or cyanosis. Pulses are adequate. NEUROLOGIC: Nonfocal. MUSCULOSKELETAL: Without joint swelling or deformity. SKIN: Without rash. DATABASE: EKG is reviewed, revealing sinus rhythm, rate of 60 beats per minute. Subsequent telemetry strips revealed episodic sinus bradycardia around 50 beats per minute. LABORATORY DATA: White count 5.7, hemoglobin 12, and platelet count is 274. Sodium 140, potassium 3.9, BUN 10, and creatinine 0.7. TSH is 0.034 and free T4 is normal range at 1.24. The troponin levels are 0.01 x2. ASSESSMENT AND PLAN: Ms. Sainz is a very pleasant 48-year-old woman with history of morbid obesity and 50-pound weight loss since. She has lower blood pressures and significant fatigue and lightheadedness noted. She also has thyroid disease, although her thyroid levels have been reasonable in the recent past. Her free T4 is normal. TSH is in near normal range on the lower end. Her symptoms are possibly related to mild dysautonomia. Her blood pressure has been stable on repeated orthostatic blood pressure measurements, but she claims that she gets more fatigued and dizzy after ambulation. She has not passed out yet. Her heart rate is clear without racing with ambulation very high. We discussed potential treatment options. I think adding midodrine to her regimen could help us to keep the blood pressure is in adequate range. If the symptoms persist despite a pacing could be reasonable option. On the other hand, we discussed potential risks including pacemaker malfunctions, lead fractures in the future, infection, bleeding, pneumothorax, tamponade. We will also detailed. She understands. We will re-evaluate her after medical therapy tomorrow. If the symptoms persist, we will proceed with pacemaker implant. She understands and willing to proceed. Thank you again for letting me to participate in the care of this patient. Job ID: [id number] [facility]
[2019-01-28] MEDS: Lorazepam 0.5 MG TAB PO SCH (21:10)
[2019-01-29] MEDS: Levothyroxine 175 MCG TAB PO SCH (05:10)
[2019-01-29] MEDS: diphenhydrAMINE 25 MG CAP PO PRN (05:43)
[2019-01-29] MEDS ORDERED: Famotidine 20 MG TAB PO SCH ×2 (08:15→16:45)
[2019-01-29] MEDS ORDERED: diphenhydrAMINE 50 MG CAP PO SCH ×2 (08:15→16:45)
[2019-01-29] MEDS ORDERED: predniSONE 50 MG TAB PO SCH ×2 (08:15→16:45)
[2019-01-29] MEDS: Famotidine 20 MG TAB PO SCH ×2 (09:02→21:38)
[2019-01-29] MEDS: Enoxaparin Sodium 40 MG/0.4 ML SYRINGE SC SCH (09:02)
[2019-01-29] MEDS: Estradiol 1 MG TAB PO SCH (09:03)
[2019-01-29] MEDS: Citalopram 20 MG TAB PO SCH (09:04)
[2019-01-29] MEDS: Midodrine HCl 5 MG TAB PO SCH ×3 (09:04→21:39)
[2019-01-29] MEDS ORDERED: Iopamidol 370 76% 50 ML VIAL FS ONE (09:20)
--- NOTE | 2019-01-29 11:41 | PDOC.HOSPP ---
- Subjective Encounter Date: 01/29/19 Encounter Time: 11:39 Subjective: going for pacemaker. - Objective Vital Signs & Weight: Vital Signs (12 hours) Temp Pulse Resp BP Pulse Ox 01/29/19 07:13 98.1 F 48 L 12 138/72 100 01/29/19 02:51 97.8 F 59 L 16 128/60 98 Weight Weight 183 lb 11.2 oz I&O: 01/28/19 01/29/19 01/30/19 06:59 06:59 06:59 Intake Total 1540 1350 Balance 1540 1350 Result Diagrams: 01/28/19 04:52 01/28/19 04:52 Hospitalist ROS - Medication Medications: Active Medications Generic Name Dose Route Start Last Admin Trade Name Freq PRN Reason Stop Dose Admin Acetaminophen 650 mg 01/27/19 08:45 01/28/19 21:10 Tylenol PO 650 mg Q4H PRN Administration Headache/Fever/Mild Pain (1-3) Citalopram Hydrobromide 40 mg 01/29/19 09:00 01/29/19 09:04 Celexa PO 40 mg DAILY AMANUEL Administration Diphenhydramine HCl 25 mg 01/29/19 05:40 01/29/19 05:43 Benadryl PO 25 mg Q6H PRN Administration Itching/ALLERGIC REACTION Diphenhydramine HCl 50 mg 01/29/19 08:15 01/29/19 09:03 Benadryl PO 01/29/19 12:00 50 mg NOW AMANUEL Administration Enoxaparin Sodium 40 mg 01/27/19 09:00 01/29/19 09:02 Lovenox SC Not Given 0900 AMANUEL Estradiol 1 mg 01/28/19 09:00 01/29/19 09:03 Estrace PO 1 mg DAILY AM[facility]UEL Administration Famotidine 20 mg 01/27/19 09:00 01/29/19 09:02 Pepcid PO Not Given BID AMANUEL Famotidine 20 mg 01/29/19 08:15 01/29/19 09:04 Pepcid PO 01/29/19 12:00 20 mg NOW AMANUEL Administration Levothyroxine Sodium 175 mcg 01/28/19 06:00 01/29/19 05:10 Synthroid PO 175 mcg 0600 AMANUEL Administration Lorazepam 0.5 mg 01/27/19 21:00 01/28/19 21:10 Ativan PO 0.5 mg HS AMANUEL Administration Midodrine 2.5 mg 01/28/19 15:00 01/29/19 09:04 Proamatine PO Not Given TID AMANUEL Pantoprazole Sodium 40 mg 01/28/19 09:00 01/29/19 09:03 Protonix PO 40 mg DAILY AMANUEL Administration Prednisone 50 mg 01/29/19 08:15 01/29/19 09:04 Prednisone PO 01/29/19 12:00 50 mg NOW AMANUEL Administration Sodium Chloride 10 ml 01/27/19 09:00 01/29/19 09:03 Flush - Normal Saline IVF 10 ml Q12HR AMANUEL Administration - Exam General Appearance: NAD, awake alert, ill appearing Eye: PERRL, anicteric sclera, scleral icterus ENT: normocephalic atraumatic, no oropharyngeal lesions, moist mucosa, dry oral mucosa Neck: supple, symmetric, no JVD, no thyromegaly, no lymphadenopathy, no carotid bruit, JVD Heart: RRR, no murmur, no gallops, no rubs, normal peripheral pulses, irregular , diminshed peripheral pulses, murmur present, II/IV, III/IV Respiratory: CTAB, no wheezes, no rales, no ronchi, normal chest expansion, no tachypnea, normal percussion, rales, rhonchi, tachypneic, wheezes Gastrointestinal: soft, non-tender, non-distended, normal bowel sounds, no palpable masses, no hepatomegaly, no splenomegaly, no bruit, no guarding, no rigidity, tender to palpation, distended, diminished bowl sounds, voluntary guarding Extremities: no cyanosis, no clubbing, no edema, 1+ LE edema, 2+ LE edema, clubbing Skin: normal turgor, no lesions, no rashes, tenting Hosp A/P (1) Chest pain Code(s): R07.9 - CHEST PAIN, UNSPECIFIED Status: Acute (2) Bradycardia Code(s): R00.1 - BRADYCARDIA, UNSPECIFIED Status: Acute - Plan pacemaker placement today
[2019-01-29] MEDS ORDERED: Midazolam HCl 2 mg/2 ml Vial ONE ×2 (18:48→18:55)
[2019-01-29] MEDS ORDERED: Fentanyl 100 MCG/2 ML VIAL ONE (18:50)
[2019-01-29] MEDS ORDERED: Lidocaine 1% (PF) 30 ML VIAL ONE (19:29)
[2019-01-29] MEDS ORDERED: Acetaminophen/Codeine 30-300mg Tablet PO PRN (20:15)
[2019-01-29] MEDS: Lorazepam 0.5 MG TAB PO SCH (21:38)
--- NOTE | 2019-01-29 23:10 | RAD ---
PORTABLE AP CHEST X-RAY: 01/29/19 HISTORY: Post cardiac pacemaker device placement. COMPARISON: 01/26/19. FINDINGS: There has been interval placement of a dual lead left subclavian cardiac pacemaking device. This exam is obtained in a shallow depth of inspiration which accentuates the cardiac silhouette and bronchova scular markings. No pneumothorax or pleural effusion is seen on this exam. No other interval change. IMPRESSION: Interval placement of a dual lead left subclavian cardiac pacemaking device without evidence of a pne umothorax on this exam. POS: OFF
[2019-01-30] MEDS: Levothyroxine 175 MCG TAB PO SCH (06:01)
[2019-01-30] MEDS: Famotidine 20 MG TAB PO SCH ×2 (09:15→20:31)
[2019-01-30] MEDS: Citalopram 20 MG TAB PO SCH (09:15)
[2019-01-30] MEDS: Midodrine HCl 5 MG TAB PO SCH ×3 (09:16→20:30)
[2019-01-30] MEDS: Enoxaparin Sodium 40 MG/0.4 ML SYRINGE SC SCH (09:19)
[2019-01-30] MEDS: Estradiol 1 MG TAB PO SCH (09:22)
--- NOTE | 2019-01-30 10:26 | PDOC.CPN ---
- Subjective Date: 01/30/19 Time: 08:00 Interval history: EP PROGRESS NOTE: PPM on 01/29. Having some pain at implant site. Otherwise feels well today - Review of Systems General: denies: fever/chills, weight/appetite/sleep changes, night sweats, fatigue Respiratory: denies: cough, congestion, shortness of breath, exercise intolerance Cardiovascular: denies: chest pain, palpitation, edema, paroxysmal nocturnal dyspnea, orthopnea Gastrointestinal: denies: nausea, vomiting, diarrhea, constipation, abd pain, GI bleeding Musculoskeletal: reports: pain - Objective Allergies/Adverse Reactions: Allergies Allergy/AdvReac Type Severity Reaction Status Date / Time celecoxib [From Celebrex] Allergy Anxiety Verified 01/26/19 16:30 fish oil Allergy Anaphylaxis Verified 01/26/19 16:30 Iodinated Contrast Media Allergy Verified 01/26/19 16:30 iodine Allergy Anaphylaxis Verified 01/26/19 16:30 promethazine Allergy Anxiety Verified 01/26/19 16:30 shellfish derived Allergy Anaphylaxis Verified 01/26/19 16:30 sumatriptan [From Imitrex] Allergy Verified 01/26/19 16:30 [id number] Antimigraine Allergy Anxiety Verified 01/26/19 16:30 Agents Visit Medications: Current Medications Acetaminophen (Tylenol) 650 mg PO Q4H PRN PRN Reason: Headache/Fever/Mild Pain (1-3) Last Admin: 01/28/19 21:10 Dose: 650 mg Acetaminophen/Codeine Phosphate (Tylenol #3) 1 tab PO Q4H PRN PRN Reason: Mild Pain (1-3) Last Admin: 01/30/19 06:41 Dose: 1 tab Acetaminophen/Codeine Phosphate (Tylenol #3) 2 tab PO Q4H PRN PRN Reason: Moderate Pain (4-6) Citalopram Hydrobromide (Celexa) 40 mg PO DAILY [facility] Last Admin: 01/30/19 09:15 Dose: 40 mg Diphenhydramine HCl (Benadryl) 25 mg PO Q6H PRN PRN Reason: Itching/ALLERGIC REACTION Last Admin: 01/29/19 05:43 Dose: 25 mg Enoxaparin Sodium (Lovenox) 40 mg SC 0900 [facility] Last Admin: 01/30/19 09:19 Dose: 40 mg Estradiol (Estrace) 1 mg PO DAILY [facility] Last Admin: 01/30/19 09:22 Dose: 1 mg Famotidine (Pepcid) 20 mg PO BID [facility] Last Admin: 01/30/19 09:15 Dose: 20 mg Levothyroxine Sodium (Synthroid) 175 mcg PO 0600 [facility] Last Admin: 01/30/19 06:01 Dose: 175 mcg Lorazepam (Ativan) 0.5 mg PO HS [facility] Last Admin: 01/29/19 21:38 Dose: 0.5 mg Midodrine (Proamatine) 2.5 mg PO TID [facility] Last Admin: 01/30/19 09:16 Dose: 2.5 mg (Fluticasone/Vilanterol [Breo Ellipta 200-25 Mcg Inh] 1 Inhaler 1 inhaler PO PRN PRN PRN Reason: SOB &/or Wheezing Pantoprazole Sodium (Protonix) 40 mg PO DAILY [facility] Last Admin: 01/30/19 09:15 Dose: 40 mg Senna/Docusate Sodium (Senokot S) 2 tab PO BIDPRN PRN PRN Reason: Constipation Sodium Chloride (Flush - Normal Saline) 10 ml IVF Q12HR [facility] Last Admin: 01/30/19 09:23 Dose: 10 ml Sodium Chloride (Flush - Normal Saline) 10 ml IVF PRN PRN PRN Reason: Saline Flush Vital Signs & Weight: Vital Signs Temp Pulse Resp BP Pulse Ox 01/30/19 07:36 97.6 F 61 14 112/59 L 100 01/30/19 03:00 98 F 61 20 109/66 97 01/29/19 23:15 98.7 F 67 20 108/57 L 96 Weight 183 lb 11.2 oz - Physical Exam General: alert & oriented x3, appears well, no apparent distress HEENT: mucus membranes moist, normocephaly Neck: supple neck, midline trachea, no JVD/HJR, no masses, no bruit, no lymphadenopathy, no thromegaly Cardiac: regular rate and rhythm, no murmur, regular rate, regular rhythm Lungs: clear to auscultation, normal breath sounds, normal exam, no wheeze, rales, rhonchi Neuro: grossly intact Skin: other (PPM incision CDI. no drainage. minimal swelling bruising. edges approximated) - Labs Result Diagrams: 01/28/19 04:52 10/22/19 04:52 Troponin/CKMB Troponin I Less than 0.010 ng/mL (< 0.028) 01/26/19 19:05 - Telemetry Sinus rhythms and dysrhythmias: other (AP, VS) - Assessment/Plan Assessment/Plan: 1. dual chamber -nml function. CXR stable. - Pain at incision. PRN tylenol and ibuprofen. 2. Chronotropic incompetence 3. Obesity 4. Migraine 5. Orthostatic hypotension OK for DC by EP. needs 7 days of antibiotics post implant. See chart front for prescription. 2 week wound check will be arranged.
[2019-01-30] MEDS: Acetaminophen/Codeine 30-300mg Tablet PO PRN ×2 (10:52→20:33)
[2019-01-30] MEDS ORDERED: (Fluticasone/Vilanterol [Breo Ellipta 200-25 Mcg Inh] INH PRN (11:15)
[2019-01-30] MEDS ORDERED: methylPREDNISolone Sod Succ/PF 125 MG/2 ML VIAL IVP SCH (12:30)
[2019-01-30] MEDS: Cephalexin 250 MG CAP PO SCH ×3 (12:48→20:31)
--- NOTE | 2019-01-30 13:11 | PDOC.HOSPP ---
- Subjective Encounter Date: 01/30/19 Encounter Time: 13:09 Subjective: Has allergic reaction to tape, benadryl imroved but still itching - Objective Vital Signs & Weight: Vital Signs (12 hours) Temp Pulse Resp BP BP BP BP 01/30/19 12:56 101/53 L 98/53 L 127/62 01/30/19 11:30 98.0 F 61 14 136/77 01/30/19 07:45 01/30/19 07:36 97.6 F 61 14 112/59 L 01/30/19 03:00 98 F 61 20 109/66 Pulse Ox 01/30/19 12:56 01/30/19 11:30 97 01/30/19 07:45 96 01/30/19 07:36 100 01/30/19 03:00 97 Weight Weight 183 lb 11.2 oz I&O: 01/29/19 01/30/19 01/31/19 06:59 06:59 06:59 Intake Total 1350 480 Balance 1350 480 Result Diagrams: 01/28/19 04:52 01/28/19 04:52 Hospitalist ROS - Medication Medications: Active Medications Generic Name Dose Route Start Last Admin Trade Name Freq PRN Reason Stop Dose Admin Acetaminophen 650 mg 01/27/19 08:45 01/28/19 21:10 Tylenol PO 650 mg Q4H PRN Administration Headache/Fever/Mild Pain (1-3) Acetaminophen/Codeine Phosphate 1 tab 01/29/19 20:15 01/30/19 06:41 Tylenol #3 PO 1 tab Q4H PRN Administration Mild Pain (1-3) Acetaminophen/Codeine Phosphate 2 tab 01/29/19 20:15 01/30/19 10:52 Tylenol #3 PO 2 tab Q4H PRN Administration Moderate Pain (4-6) Cephalexin 500 mg 01/30/19 13:00 01/30/19 12:48 Keflex PO 500 mg QID AMANUEL Administration Citalopram Hydrobromide 40 mg 01/29/19 09:00 01/30/19 09:15 Celexa PO 40 mg DAILY [facility] Administration Diphenhydramine HCl 25 mg 01/29/19 05:40 01/29/19 05:43 Benadryl PO 25 mg Q6H PRN Administration Itching/ALLERGIC REACTION Enoxaparin Sodium 40 mg 01/27/19 09:00 01/30/19 09:19 Lovenox SC 40 mg 0900 [facility] Administration Estradiol 1 mg 01/28/19 09:00 01/30/19 09:22 Estrace PO 1 mg DAILY AM[facility]UEL Administration Famotidine 20 mg 01/27/19 09:00 01/30/19 09:15 Pepcid PO 20 mg BID AMANUEL Administration Levothyroxine Sodium 175 mcg 01/28/19 06:00 01/30/19 06:01 Synthroid PO 175 mcg 0600 AMNAUEL Administration Lorazepam 0.5 mg 01/27/19 21:00 01/29/19 21:38 Ativan PO 0.5 mg HS AMANUEL Administration Methylprednisolone Sodium Succinate 125 mg 01/30/19 12:30 01/30/19 12:48 Solu-Medrol IVP 01/30/19 14:30 125 mg NOW AMANUEL Administration Midodrine 2.5 mg 01/28/19 15:00 01/30/19 09:16 Proamatine PO 2.5 mg TID AMANUEL Administration Pantoprazole Sodium 40 mg 01/28/19 09:00 01/30/19 09:15 Protonix PO 40 mg DAILY AM[facility]UEL Administration Sodium Chloride 10 ml 01/27/19 09:00 01/30/19 09:23 Flush - Normal Saline IVF 10 ml Q12HR AM[facility]UEL Administration - Exam General Appearance: NAD, awake alert, ill appearing Eye: PERRL, anicteric sclera, scleral icterus ENT: normocephalic atraumatic, no oropharyngeal lesions, moist mucosa, dry oral mucosa Neck: supple, symmetric, no JVD, no thyromegaly, no lymphadenopathy, no carotid bruit, JVD Heart: RRR, no murmur, no gallops, no rubs, normal peripheral pulses, irregular , diminshed peripheral pulses, murmur present, II/IV, III/IV Respiratory: CTAB, no wheezes, no rales, no ronchi, normal chest expansion, no tachypnea, normal percussion, rales, rhonchi, tachypneic, wheezes Gastrointestinal: soft, non-tender, non-distended, normal bowel sounds, no palpable masses, no hepatomegaly, no splenomegaly, no bruit, no guarding, no rigidity, tender to palpation, distended, diminished bowl sounds, voluntary guarding Extremities: no cyanosis, no clubbing, no edema, 1+ LE edema, 2+ LE edema, clubbing Skin - other findings: skin rash present on the chest Hosp A/P (1) Chest pain Code(s): R07.9 - CHEST PAIN, UNSPECIFIED Status: Acute (2) Bradycardia Code(s): R00.1 - BRADYCARDIA, UNSPECIFIED Status: Acute - Plan pacemaker placement done yesterday. Solumedrol 125 mg IVP
[2019-01-30] MEDS: Lorazepam 0.5 MG TAB PO SCH (20:32)
[2019-01-31] MEDS: Levothyroxine 175 MCG TAB PO SCH (05:46)
[2019-01-31] MEDS: Citalopram 20 MG TAB PO SCH (08:41)
[2019-01-31] MEDS: Enoxaparin Sodium 40 MG/0.4 ML SYRINGE SC SCH (08:42)
[2019-01-31] MEDS: Famotidine 20 MG TAB PO SCH (08:42)
[2019-01-31] MEDS: Cephalexin 250 MG CAP PO SCH (08:42)
[2019-01-31] MEDS: Estradiol 1 MG TAB PO SCH (08:42)
[2019-01-31] MEDS: Midodrine HCl 5 MG TAB PO SCH (08:42)
[2019-01-31] MEDS: Acetaminophen 325 MG TAB PO PRN (08:43)
[2019-01-31] MEDS: diphenhydrAMINE 25 MG CAP PO PRN (08:47)
[2019-01-31 11:57] VITALS: TEMP 97.8
[2019-01-31 12:09] VITALS: BP 114/56
--- NOTE | 2019-01-31 12:49 | PDOC.CPN ---
- Subjective Date: 01/31/19 Time: 11:00 Interval history: EP PROGRESS NOTE: Follow up for SSS and pacemaker. Mild discomfort at PPM site. had dizziness last night and reports BP low at times. Otherwise feels fine and ready to go home. - Review of Systems General: denies: fever/chills, weight/appetite/sleep changes, night sweats, fatigue Respiratory: denies: cough, congestion, shortness of breath, exercise intolerance Cardiovascular: denies: chest pain, palpitation, edema, paroxysmal nocturnal dyspnea, orthopnea Gastrointestinal: denies: nausea, vomiting, diarrhea, constipation, abd pain, GI bleeding Musculoskeletal: denies: pain, tenderness, stiffness, swelling, arthritis/ arthralgias Neurological: denies: numbness (+dizziness, near syncope), syncope, seizure, weakness - Objective Allergies/Adverse Reactions: Allergies Allergy/AdvReac Type Severity Reaction Status Date / Time celecoxib [From Celebrex] Allergy Anxiety Verified 01/26/19 16:30 fish oil Allergy Anaphylaxis Verified 01/26/19 16:30 Iodinated Contrast Media Allergy Verified 01/26/19 16:30 iodine Allergy Anaphylaxis Verified 01/26/19 16:30 promethazine Allergy Anxiety Verified 01/26/19 16:30 shellfish derived Allergy Anaphylaxis Verified 01/26/19 16:30 sumatriptan [From Imitrex] Allergy Verified 01/26/19 16:30 [id number] Antimigraine Allergy Anxiety Verified 01/26/19 16:30 Agents Visit Medications: Current Medications Acetaminophen (Tylenol) 650 mg PO Q4H PRN PRN Reason: Headache/Fever/Mild Pain (1-3) Last Admin: 01/31/19 08:43 Dose: 650 mg Acetaminophen/Codeine Phosphate (Tylenol #3) 1 tab PO Q4H PRN PRN Reason: Mild Pain (1-3) Last Admin: 01/30/19 06:41 Dose: 1 tab Acetaminophen/Codeine Phosphate (Tylenol #3) 2 tab PO Q4H PRN PRN Reason: Moderate Pain (4-6) Last Admin: 01/30/19 20:33 Dose: 2 tab Albuterol/Ipratropium (Duoneb) 3 ml NEB [id number] PRN PRN Reason: SOB &/or Wheezing Cephalexin (Keflex) 500 mg PO QID [facility] Last Admin: 01/31/19 08:42 Dose: 500 mg Citalopram Hydrobromide (Celexa) 40 mg PO DAILY [facility] Last Admin: 01/31/19 08:41 Dose: 40 mg Diphenhydramine HCl (Benadryl) 25 mg PO Q6H PRN PRN Reason: Itching/ALLERGIC REACTION Last Admin: 01/31/19 08:47 Dose: 25 mg Enoxaparin Sodium (Lovenox) 40 mg SC 0900 [facility] Last Admin: 01/31/19 08:42 Dose: 40 mg Estradiol (Estrace) 1 mg PO DAILY [facility] Last Admin: 01/31/19 08:42 Dose: 1 mg Famotidine (Pepcid) 20 mg PO BID [facility] Last Admin: 01/31/19 08:42 Dose: 20 mg Levothyroxine Sodium (Synthroid) 175 mcg PO 0600 [facility] Last Admin: 01/31/19 05:46 Dose: 175 mcg Lorazepam (Ativan) 0.5 mg PO HS [facility] Last Admin: 01/30/19 20:32 Dose: 0.5 mg Midodrine (Proamatine) 2.5 mg PO TID [facility] Last Admin: 01/31/19 08:42 Dose: 2.5 mg Pantoprazole Sodium (Protonix) 40 mg PO DAILY [facility] Last Admin: 01/31/19 08:42 Dose: 40 mg Senna/Docusate Sodium (Senokot S) 2 tab PO BIDPRN PRN PRN Reason: Constipation Sodium Chloride (Flush - Normal Saline) 10 ml IVF Q12HR [facility] Last Admin: 01/31/19 08:48 Dose: 10 ml Sodium Chloride (Flush - Normal Saline) 10 ml IVF PRN PRN PRN Reason: Saline Flush Vital Signs & Weight: Vital Signs Temp Pulse Pulse Pulse Resp BP BP 01/31/19 11:57 97.8 F 60 17 01/31/19 09:35 60 61 114/56 L 109/59 L 01/31/19 08:40 97.6 F 60 20 01/31/19 03:00 97.1 F L 62 20 BP Pulse Ox Pulse Ox 01/31/19 11:57 133/65 98 01/31/19 09:35 99 01/31/19 08:40 146/69 H 100 01/31/19 03:00 106/58 L 97 Weight 180 lb 9.6 oz - Physical Exam General: alert & oriented x3 HEENT: mucus membranes moist Neck: supple neck, no JVD/HJR Cardiac: regular rate and rhythm, no murmur Lungs: clear to auscultation, normal breath sounds Neuro: grossly intact Abdomen: soft, non-tender Skin: clear - Labs Result Diagrams: 01/28/19 04:52 01/28/19 04:52 Troponin/CKMB Troponin I Less than 0.010 ng/mL (< 0.028) 01/26/19 19:05 - Telemetry Sinus rhythms and dysrhythmias: sinus rhythm (demand pacing seen) - Assessment/Plan Assessment/Plan: 1. dual chamber - nml function. CXR stable. - Pain at incision. PRN tylenol upon DC 2. Chronotropic incompetence 3. Obesity 4. Migraine 5. Orthostatic hypotension OK for DC by EP. needs 7 days of antibiotics post implant. See chart front for prescription. 2 week wound check will be arranged. Discussed supportive measures for dizzy spells including slow position changes, support stocking, adequate hydration, and salt intake.
--- NOTE | 2019-02-03 15:27 | DIS ---
DATE OF ADMISSION: 01/26/2019 DATE OF DISCHARGE: 01/31/2019 ADMITTING DIAGNOSES: 1. Chest pain. 2. Dizziness. 3. Bradycardia. FINAL DIAGNOSES: 1. Chest pain, ruled out myocardial infarction. 2. Bradycardia, sick sinus syndrome status post pacemaker placement. CONSULTANTS ON THE CASE: Dr. Ch for EP/Cardiology. HOSPITAL COURSE: The patient had been hospitalized. Serial cardiac enzymes were obtained. Ruled out for myocardial infarction. As the patient consistently has dizziness and giddiness and bradycardia, the EP was consulted and recommended pacemaker placement and the patient underwent pacemaker successfully. As the patient's condition significantly improved after placing the pacemaker, it has been concluded to discharge the patient to outpatient care as per the recommendation of Cardiology. DISCHARGE INSTRUCTIONS: Location: Discharged the patient to outpatient care. Diet: Regular. Activity: As tolerated. Discharge medications: 1. Midodrine hydrochloride 2.5 mg p.o. t.i.d. 2. Continue Keflex 250 mg p.o. q.i.d. for 7 days as per cardiology recommendations. Rest of the medicines as per reconciliation sheet. Job ID: [id number]
== END 2019-01-31 12:50 | disposition home or self-care (01) | DRG 244 ==
LOC: ERS 12:15 → 2NO 15:46 → OBSVTOIN 15:58 → 2SW 15:58 → 2NO 01-29 16:27
PROVIDERS: ADMIT Internal Medicine; ATTEND Internal Medicine
PROC: 0JH606Z Insertion of Pacemaker, Dual Chamber into Chest Subcutaneous Tissue and Fascia, Open Approach (ICD-10-PCS; principal; 2019-01-26)
PROC: 02HK3JZ Insertion of Pacemaker Lead into Right Ventricle, Percutaneous Approach (ICD-10-PCS; 2019-01-26)
PROC: 02H63JZ Insertion of Pacemaker Lead into Right Atrium, Percutaneous Approach (ICD-10-PCS; 2019-01-26)
DX: R00.1 Bradycardia, unspecified (principal); I25.119 Atherosclerotic heart disease of native coronary artery with unspecified angina pectoris; I10 Essential (primary) hypertension; J45.909 Unspecified asthma, uncomplicated; F41.9 Anxiety disorder, unspecified; I95.9 Hypotension, unspecified; J44.9 Chronic obstructive pulmonary disease, unspecified; G43.909 Migraine, unspecified, not intractable, without status migrainosus; K76.0 Fatty (change of) liver, not elsewhere classified; I95.1 Orthostatic hypotension; E66.9 Obesity, unspecified; Z68.33 Body mass index [BMI] 33.0-33.9, adult; Z90.49 Acquired absence of other specified parts of digestive tract; Z90.710 Acquired absence of both cervix and uterus; Z88.8 Allergy status to other drugs, medicaments and biological substances
CPT/HCPCS: 33208; 36415; 71045; 78452; 80048; 80053; 80061; 82550; 83690; 84439; 84443; 84484; 85025; 85379; 90471; 90686; 93005; 93017; 93798; 96360; 99152; 99153; A9500; C1785; C1898; G0008; J0690; J1650; J2001; J2250; J2785; J2930; J3010; J3490; J7512; Q0163; Q9967

== ENCOUNTER 2019-02-14 16:16 | Outpatient (CLI) | payer BC ==
[2019-02-14 17:23] LABS: #Basophils 0.1 thou/uL (0.0-0.2); #Eosinphils 0.3 thou/uL (0.0-0.7); #Lymphocytes 3.3 thou/uL (1.20-3.40); #Monocytes 0.5 thou/uL (0.11-0.59); #Neutrophils 4.6 thou/uL (1.40-6.50); %Lymphocytes 37.7 % (21.0-51.0); %Monocytes 5.7 % (0.0-10.0); %Neutrophils 52.5 % (42.0-75.0); Hemoglobin 12.1 g/dL (12.0-16.0); Mean Corpuscular Hemoglobin 30.4 pg (27.0-31.0); Mean Platelet Volume 6.4 fL (7.4-10.4); Platelet Count 290 thou/uL (130-400); RBC Distribution Width 12.3 % (11.5-14.5); Red Blood Cell (RBC) Count 3.97 mill/uL (4.20-5.40); White Blood Cell (WBC) Count 8.8 thou/uL (4.8-10.8)
[2019-02-14 17:46] LABS: ALT (SGPT) 12 U/L (8-55); AST (SGOT) 14 U/L (5-34); Albumin 4.6 g/dL (3.5-5.0); Alkaline Phosphatase 54 U/L (40-110); Anion Gap 14 mmol/L (10-20); BUN (Urea Nitrogen) 23 mg/dL (7.0-18.7); Bilirubin, Total 0.4 mg/dL (0.2-1.2); Calc. Creatinine Clearance 0 mL/min (70-130); Calcium 9.5 mg/dL (7.8-10.44); Carbon Dioxide 26 mmol/L (22-29); Chloride 107 mmol/L (98-107); Estimated GFR-MDRD 73; Globulin 2.9 g/dL (2.4-3.5); Glucose 75 mg/dL (70-105); Potassium 4.6 mmol/L (3.5-5.1); Protein, Total 7.5 g/dL (6.0-8.3); Sodium 142 mmol/L (136-145)
== END 2019-02-14 16:17 | disposition home or self-care (01) ==
LOC: LABBT 16:16
PROVIDERS: ATTEND Surgery
DX: Z01.818 Encounter for other preprocedural examination (principal); D17.1 Benign lipomatous neoplasm of skin and subcutaneous tissue of trunk
CPT/HCPCS: 80053; 85025; 93005; 93010

== ENCOUNTER 2019-02-21 07:08 | Day surgery (SDC) | payer BC ==
[2019-02-14 16:24] VITALS: BMI 32.0
[2019-02-21] MEDS ORDERED: Midazolam HCl 2 mg/2 ml Vial ONE (07:43)
[2019-02-21] MEDS ORDERED: Lidocaine 2% PF 5 ML VIAL ONE (07:44)
[2019-02-21] MEDS ORDERED: Bupivacaine HCl 0.5%/Epinephrine 1:200,000/PF 30 ml Vial ONE (07:44)
[2019-02-21] MEDS ORDERED: Fentanyl 100 MCG/2 ML VIAL ONE (07:59)
[2019-02-21] MEDS ORDERED: HYDROcodone/Acetaminophen 5/325 mg Tablet ONE (09:56)
--- NOTE | 2019-02-21 10:42 | OP ---
DATE OF PROCEDURE: 02/21/2019 PREOPERATIVE DIAGNOSIS: Lipoma, left flank. PROCEDURE PERFORMED: Excisional biopsy. INDICATIONS: A 48-year-old female with enlarging soft tissue mass, left flank. FINDINGS: A 6 x 5 cm unilobular lipoma. DESCRIPTION OF PROCEDURE: After informed consent was obtained, the patient was taken to the operating room and given general mask anesthesia, placed in the right lateral decubitus position. Her left flank was prepped and draped in usual fashion. Local anesthesia was infiltrated subcutaneously and deep. A transverse incision was performed. The capsule incised. Digital dissection was performed. The capsule was excised. The lipoma sent to Pathology for further analysis. Hemostasis was achieved with electrocautery. Subcu was reapproximated with interrupted 3-0 Vicryl. Skin was closed with a running subcuticular 4-0 Rapide. Dermabond was applied. A pressure bandage was applied. The patient tolerated the procedure well, transferred to Recovery in good condition. Sponge and needle count verified correct x2. Job ID: [id number]
[2019-02-21] MEDS ORDERED: PROPOFOL 200 MG/20 ML VIAL ONE (12:12)
[2019-02-21] MEDS ORDERED: Ketorolac Tromethamine 30 MG/ML VIAL ONE (12:12)
[2019-02-21] MEDS ORDERED: Lidocaine 1% PF 5 ML VIAL ONE (12:12)
[2019-02-21] MEDS ORDERED: Dexamethasone 20 MG/5 ML VIAL ONE (12:12)
[2019-02-21] MEDS ORDERED: ePHEDrine/0.9% NaCl/PF SYRINGE 50 mg/10 ml ONE (12:12)
[2019-02-21] MEDS ORDERED: PHENYLEPHRINE-NS 100 MCG/ML 10 ML SYRINGE ONE (12:12)
[2019-02-21] MEDS ORDERED: Ondansetron PF 4 MG/2 ML Vial ONE (12:12)
== END 2019-02-21 10:22 | disposition home or self-care (01) ==
LOC: SDC 07:08
PROVIDERS: ATTEND Surgery
PROC: 0JB80ZZ Excision of Abdomen Subcutaneous Tissue and Fascia, Open Approach (ICD-10-PCS; principal; 2019-02-21)
DX: D17.1 Benign lipomatous neoplasm of skin and subcutaneous tissue of trunk (principal); I10 Essential (primary) hypertension; E03.9 Hypothyroidism, unspecified; E66.9 Obesity, unspecified; F41.9 Anxiety disorder, unspecified; Z68.32 Body mass index [BMI] 32.0-32.9, adult; Z79.899 Other long term (current) drug therapy; Z88.8 Allergy status to other drugs, medicaments and biological substances; Z91.013 Allergy to seafood; Z91.041 Radiographic dye allergy status; Z91.048 Other nonmedicinal substance allergy status
CPT/HCPCS: 88304; J0670; J1100; J1885; J2001; J2250; J2405; J2704; J3010

== ENCOUNTER 2019-03-18 14:02 | Outpatient (CLI) | payer BC ==
--- NOTE | 2019-03-18 14:17 | RAD ---
XR Chest Pa Lat STANDARD HISTORY: Presence of cardiac pacemaker COMPARISON: 02/20/2018 FINDINGS: There has been interval placement of a left-sided pacemaker device with bipolar leads in th e right atrium and right ventricle. The heart size is normal. The lungs are well expanded without focal areas of consolidation, pneumothorax or pleural effusions. IMPRESSION: No radiographic evidence of acute cardiopulmonary process.
== END 2019-03-18 14:03 | disposition home or self-care (01) ==
LOC: BICRAD 14:02
PROVIDERS: ATTEND Internal Medicine Cardiovascular Disease
DX: Z48.812 Encounter for surgical aftercare following surgery on the circulatory system (principal); Z95.0 Presence of cardiac pacemaker
CPT/HCPCS: 71046

== ENCOUNTER 2019-06-24 07:17 | Day surgery (SDC) | payer BC ==
[2019-06-23 16:18] VITALS: BMI 31.1
[2019-06-24] MEDS ORDERED: PROPOFOL 200 MG/20 ML VIAL ONE (10:41)
--- NOTE | 2019-06-24 11:25 | OP ---
DATE OF PROCEDURE: 06/24/2019 PROCEDURES PERFORMED: 1. Esophagogastroduodenoscopy with biopsy. 2. Colonoscopy. PREOPERATIVE DIAGNOSES: Hematochezia and personal history of adenomatous colon polyps, epigastric pain, and gastroesophageal reflux disease. DESCRIPTION OF PROCEDURE: Informed consent was obtained from the patient. She was sedated with total intravenous anesthesia. The bite block was placed and the endoscope was advanced easily to the second portion of the duodenum and retroflexion was performed in the stomach. The esophagus was normal. The GE junction was normal. She has had a prior sleeve gastrectomy and the mucosa and the staple line appears healthy and intact. The lumen was patent. The antrum of the stomach was normal and retroflex views in this area were normal. The pylorus and first and second portions of the duodenum were normal. Biopsies were taken from the second portion of the duodenum to rule out celiac disease. The patient was turned around. Rectal exam was performed and was normal and visualize no obvious fissure. Digital rectal exam was otherwise normal. There was a fixed flexure in the distal sigmoid. This was difficult to advance the scope around. Once I was able to advance the scope through that area, I was able to then proceed easily to the terminal ileum. As the colonoscope reduced around the fixed sigmoid area, the tip of the scope scraped a layer of mucosa from that focal area in the sigmoid colon. There was no persistent bleeding or deeper injury in this area. The remainder of the colonic mucosa was normal. There were no polyps. The ileocecal valve and appendiceal orifice were clearly identified. The mucosa of the terminal ileum was normal. Retroflexed views in the rectum were unremarkable. IMPRESSION: 1. Post gastric sleeve anatomy with healthy mucosa. The staple line was intact and patent. 2. Normal esophagus and duodenum. Duodenal biopsies were taken to rule out celiac disease. 3. She had a fixed sigmoid that made advancement of the scope somewhat difficult around this area. However, once beyond that site, the remainder of the procedure was easy. 4. Otherwise, normal colonoscopy to the terminal ileum. RECOMMENDATIONS: 1. Await histopathology. 2. Repeat colonoscopy in 5 years for surveillance in light of the history of adenomatous colon polyps on prior colonoscopy. 3. MiraLAX 17 g daily. 4. Follow up in [facility]. Job ID: [id number]
== END 2019-06-24 11:14 | disposition home or self-care (01) ==
LOC: SDC 07:17
PROVIDERS: ATTEND Internal Medicine Gastroenterology
PROC: 0DJD8ZZ Inspection of Lower Intestinal Tract, Via Natural or Artificial Opening Endoscopic (ICD-10-PCS; principal; 2019-06-24)
PROC: 0DB58ZX Excision of Esophagus, Via Natural or Artificial Opening Endoscopic, Diagnostic (ICD-10-PCS; principal; 2019-06-24)
DX: K92.1 Melena (principal); K21.9 Gastro-esophageal reflux disease without esophagitis; D64.9 Anemia, unspecified; I10 Essential (primary) hypertension; E03.9 Hypothyroidism, unspecified; F41.9 Anxiety disorder, unspecified; Z86.010 Personal history of colon polyps; Z79.899 Other long term (current) drug therapy; Z88.6 Allergy status to analgesic agent; Z88.8 Allergy status to other drugs, medicaments and biological substances; Z91.013 Allergy to seafood; Z91.018 Allergy to other foods; Z91.048 Other nonmedicinal substance allergy status; Z91.041 Radiographic dye allergy status
CPT/HCPCS: 88305; J2704

== ENCOUNTER 2019-09-23 12:16 | Outpatient (CLI) | payer BC ==
--- NOTE | 2019-09-23 12:46 | RAD ---
EXAM: Chest 2 views: HISTORY: Dyspnea COMPARISON: 03/18/2019 FINDINGS: There is a normal-sized cardiomediastinal silhouette. The pacemaker is unchanged in position. There is no evidence of consolidation, mass, or pleural effusion. The bones are unremarkable. IMPRESSION: No evidence of acute cardiopulmonary disease
== END 2019-09-23 12:17 | disposition home or self-care (01) ==
LOC: BICRAD 12:16
PROVIDERS: ATTEND Internal Medicine Critical Care Medicine
DX: R06.00 Dyspnea, unspecified (principal)
CPT/HCPCS: 71046

== ENCOUNTER 2020-05-07 10:43 | Outpatient (CLI) | payer BC ==
[2020-05-07] MEDS ORDERED: Iopamidol 370 76% 100 ML VIAL ONE (14:04)
[2020-05-07] MEDS ORDERED: Iopamidol 370 76% 50 ML VIAL FS ONE (14:04)
== END 2020-05-07 10:44 | disposition home or self-care (01) ==
LOC: CT 10:43
PROVIDERS: ATTEND Physician Assistant Medical
DX: R10.13 Epigastric pain (principal)
CPT/HCPCS: 74177; Q9967

== ENCOUNTER 2020-06-01 12:15 | Outpatient (CLI) | payer BC ==
--- NOTE | 2020-06-01 12:36 | RAD ---
RADIOGRAPH CHEST 2 VIEWS: DATE: 06/01/2020 HISTORY: 49-year-old female with dyspnea FINDINGS: There is no airspace density, pulmonary edema, pleural effusion, pneumothorax, or cardiomegaly. There is a dual-lead left subclavian permanent pacemaker. IMPRESSION: No acute cardiopulmonary findings.
== END 2020-06-01 12:16 | disposition home or self-care (01) ==
LOC: BICRAD 12:15
PROVIDERS: ATTEND Internal Medicine Critical Care Medicine
DX: R06.00 Dyspnea, unspecified (principal)
CPT/HCPCS: 71046

== ENCOUNTER 2020-08-09 16:56 | Emergency (ER) | payer BC ==
[2020-08-09 19:55] LABS: Bilirubin Negative (Negative); Blood, Urine Negative (Negative); Clarity Clear (Clear); Glucose, Urine (Dipstick) Normal (Negative); Ketone, Urine Negative (Negative); Leukocyte Negative Leu/uL (Negative); Nitrite Negative (Negative); Protein, Urine (Dipstick) Negative (Neg-Trace); Specific Gravity, Urine 1.031 (1.002-1.036); Urobilinogen Normal mg/dL (Less than 2); pH, Urine 5.5 (5.0-9.0)
[2020-08-09 20:18] LABS: #Basophils 0.1 thou/uL (0.0-0.2); #Eosinphils 0.4 thou/uL (0.0-0.7); #Lymphocytes 2.3 thou/uL (1.20-3.40); #Monocytes 0.7 thou/uL (0.11-0.59); #Neutrophils 2.9 thou/uL (1.40-6.50); %Basophils 1.2 % (0.0-1.0); %Eosinophils 5.8 % (0.0-10.0); %Lymphocytes 35.8 % (21.0-51.0); %Monocytes 10.4 % (0.0-10.0); %Neutrophils 46.8 % (42.0-75.0); Hemoglobin 11.2 g/dL (12.0-16.0); Mean Corpuscular HGB CONC 33.6 g/dL (32.0-36.0); Mean Corpuscular Hemoglobin 30.4 pg (27.0-31.0); Mean Corpuscular Volume 90.7 fL (78.0-98.0); Mean Platelet Volume 6.6 fL (7.4-10.4); Platelet Count 296 thou/uL (130-400); RBC Distribution Width 12.9 % (11.5-14.5); Red Blood Cell (RBC) Count 3.69 mill/uL (4.20-5.40); White Blood Cell (WBC) Count 6.3 thou/uL (4.8-10.8)
[2020-08-09 20:42] LABS: ALT (SGPT) 13 U/L (8-55); AST (SGOT) 16 U/L (5-34); Albumin 4.4 g/dL (3.5-5.0); Alkaline Phosphatase 34 U/L (40-110); Anion Gap 10 mmol/L (10-20); BUN (Urea Nitrogen) 19 mg/dL (7.0-18.7); Bilirubin, Total 0.3 mg/dL (0.2-1.2); Calc. Creatinine Clearance 0 mL/min (70-130); Calcium 9.3 mg/dL (7.8-10.44); Carbon Dioxide 26 mmol/L (22-29); Chloride 110 mmol/L (98-107); Globulin 3.2 g/dL (2.4-3.5); Glucose 95 mg/dL (70-105); Potassium 3.8 mmol/L (3.5-5.1); Protein, Total 7.6 g/dL (6.0-8.3); Sodium 142 mmol/L (136-145)
[2020-08-09] MEDS ORDERED: diphenhydrAMINE 25 MG CAP ONE (23:28)
[2020-08-09] MEDS ORDERED: Metoclopramide HCl 10 MG TAB ONE (23:28)
== END 2020-08-09 23:40 | disposition home or self-care (01) ==
LOC: ERS 16:56
DX: G43.809 Other migraine, not intractable, without status migrainosus (principal); J44.9 Chronic obstructive pulmonary disease, unspecified; Z79.899 Other long term (current) drug therapy
CPT/HCPCS: 36415; 70450; 71045; 80053; 81003; 83880; 84484; 85025; 85379; 93005; Q0163

== ENCOUNTER 2020-09-21 08:29 | Outpatient (CLI) | payer BC | END 2020-09-21 08:30 | disposition home or self-care (01) | LOC: BICMAMMO 08:29 | PROVIDERS: ATTEND Internal Medicine | DX: Z12.31 Encounter for screening mammogram for malignant neoplasm of breast (principal); Z80.3 Family history of malignant neoplasm of breast | CPT/HCPCS: 77063; 77067 ==

== ENCOUNTER 2021-05-25 18:49 | Emergency (ER) | payer BC ==
[2021-05-25 19:13] LABS: #Basophils 0.1 thou/uL (0.0-0.2); #Eosinphils 0.2 thou/uL (0.0-0.7); #Monocytes 0.6 thou/uL (0.11-0.59); #Neutrophils 3.8 thou/uL (1.40-6.50); %Basophils 0.8 % (0.0-1.0); %Eosinophils 2.8 % (0.0-10.0); %Lymphocytes 30.1 % (21.0-51.0); %Neutrophils 57.3 % (42.0-75.0); Hemoglobin 12.1 g/dL (12.0-16.0); Mean Corpuscular HGB CONC 32.3 g/dL (32.0-36.0); Mean Corpuscular Hemoglobin 29.8 pg (27.0-31.0); Mean Corpuscular Volume 92.3 fL (78.0-98.0); Mean Platelet Volume 6.3 fL (7.4-10.4); Platelet Count 349 thou/uL (130-400); RBC Distribution Width 12.9 % (11.5-14.5); Red Blood Cell (RBC) Count 4.08 mill/uL (4.20-5.40); White Blood Cell (WBC) Count 6.6 thou/uL (4.8-10.8)
[2021-05-25 19:37] LABS: ALT (SGPT) 15 U/L (8-55); AST (SGOT) 18 U/L (5-34); Albumin 4.5 g/dL (3.5-5.0); Alkaline Phosphatase 41 U/L (40-110); Anion Gap 9 mmol/L (10-20); BUN (Urea Nitrogen) 20 mg/dL (7.0-18.7); Bilirubin, Total 0.3 mg/dL (0.2-1.2); Calc. Creatinine Clearance 0 mL/min (70-130); Calcium 9.4 mg/dL (7.8-10.44); Carbon Dioxide 28 mmol/L (22-29); Chloride 108 mmol/L (98-107); Globulin 3.3 g/dL (2.4-3.5); Glucose 120 mg/dL (70-105); Potassium 4.1 mmol/L (3.5-5.1); Protein, Total 7.8 g/dL (6.0-8.3); Sodium 141 mmol/L (136-145)
== END 2021-05-25 23:14 | disposition home or self-care (01) ==
LOC: ERS 18:49
DX: R07.89 Other chest pain (principal); I51.7 Cardiomegaly; E05.90 Thyrotoxicosis, unspecified without thyrotoxic crisis or storm; J44.9 Chronic obstructive pulmonary disease, unspecified; Z95.0 Presence of cardiac pacemaker; Z79.899 Other long term (current) drug therapy
CPT/HCPCS: 36415; 71045; 80053; 83690; 84484; 85025; 93005

== ENCOUNTER 2021-09-23 12:20 | Outpatient (CLI) | payer BC | END 2021-09-23 12:21 | disposition home or self-care (01) | LOC: BICMAMMO 12:20 | PROVIDERS: ATTEND Internal Medicine | DX: Z12.31 Encounter for screening mammogram for malignant neoplasm of breast (principal); Z80.3 Family history of malignant neoplasm of breast | CPT/HCPCS: 77063; 77067 ==

== ENCOUNTER 2021-12-01 09:41 | Outpatient (CLI) | payer BC | END 2021-12-01 09:42 | disposition home or self-care (01) | LOC: RAD 09:41 | PROVIDERS: ATTEND Internal Medicine Critical Care Medicine | DX: R06.00 Dyspnea, unspecified (principal) | CPT/HCPCS: 71046 ==

== ENCOUNTER 2022-01-10 21:58 | Emergency (ER) | payer BC ==
[2022-01-10 23:23] LABS: #Eosinphils 0.1 thou/uL (0.0-0.7); #Lymphocytes 2.1 thou/uL (1.20-3.40); #Monocytes 0.6 thou/uL (0.11-0.59); #Neutrophils 3.4 thou/uL (1.40-6.50); %Basophils 0.5 % (0.0-1.0); %Eosinophils 2.4 % (0.0-10.0); %Monocytes 9.3 % (0.0-10.0); %Neutrophils 53.8 % (42.0-75.0); Hemoglobin 11.1 g/dL (12.0-16.0); Mean Corpuscular HGB CONC 31.9 g/dL (32.0-36.0); Mean Corpuscular Hemoglobin 28.9 pg (27.0-31.0); Mean Corpuscular Volume 90.6 fL (78.0-98.0); Mean Platelet Volume 6.8 fL (7.4-10.4); Platelet Count 332 thou/uL (130-400); RBC Distribution Width 14.8 % (11.5-14.5); Red Blood Cell (RBC) Count 3.85 mill/uL (4.20-5.40); White Blood Cell (WBC) Count 6.2 thou/uL (4.8-10.8)
[2022-01-11 00:11] LABS: ALT (SGPT) 13 U/L (8-55); AST (SGOT) 18 U/L (5-34); Albumin 4.6 g/dL (3.5-5.0); Alkaline Phosphatase 42 U/L (40-110); Anion Gap 12 mmol/L (10-20); BUN (Urea Nitrogen) 19 mg/dL (9.8-20.1); Bilirubin, Total 0.4 mg/dL (0.2-1.2); Calc. Creatinine Clearance 0 mL/min (70-130); Calcium 9.1 mg/dL (7.8-10.44); Carbon Dioxide 26 mmol/L (22-29); Chloride 107 mmol/L (98-107); Estimated GFR 52; Globulin 2.9 g/dL (2.4-3.5); Glucose 103 mg/dL (70-105); Potassium 4.1 mmol/L (3.5-5.1); Protein, Total 7.5 g/dL (6.0-8.3); Sodium 141 mmol/L (136-145)
[2022-01-11] MEDS ORDERED: Acetaminophen 500 MG TAB ONE (02:33)
== END 2022-01-11 03:45 | disposition home or self-care (01) ==
LOC: ERS 21:58
DX: R00.2 Palpitations (principal); J44.9 Chronic obstructive pulmonary disease, unspecified; Z79.899 Other long term (current) drug therapy
CPT/HCPCS: 36415; 71045; 80053; 84484; 85025; 93005

== ENCOUNTER 2022-01-20 15:25 | Outpatient (CLI) | payer BC ==
[2022-01-20 16:22] LABS: #Eosinphils 0.1 10x3/uL (0.0-0.5); #Monocytes 0.6 10x3/uL (0.0-1.1); #Neutrophils 3.8 10x3/uL (1.5-8.4); %Basophils 0.7 % (0.0-2.0); %Eosinophils 1.5 % (0.0-6.0); %Monocytes 9.2 % (0.0-10.0); %Neutrophils 62.3 % (40.0-75.0); Mean Corpuscular HGB CONC 32.4 g/dL (32.0-36.0); Mean Corpuscular Hemoglobin 28.8 pg (27.0-33.0); Mean Platelet Volume 9.2 fl (7.4-10.4); Platelet Count 321 10x3/uL (150-450); RBC Distribution Width 15.9 % (11.5-14.5); Red Blood Cell (RBC) Count 3.82 10x6/uL (3.90-5.03); White Blood Cell (WBC) Count 6.1 10x3/uL (3.5-10.5)
[2022-01-20 16:41] LABS: PTT 25.5 sec (22.0-33.0); Prothrombin Time 10.8 sec (9.5-12.1)
[2022-01-20 16:47] LABS: Anion Gap 14 mmol/L (10-20); BUN (Urea Nitrogen) 9 mg/dL (9.8-20.1); Calc. Creatinine Clearance 0 mL/min (70-130); Calcium 9.6 mg/dL (7.8-10.44); Carbon Dioxide 26 mmol/L (22-29); Chloride 106 mmol/L (98-107); Estimated GFR 78; Glucose 139 mg/dL (70-105); Potassium 3.7 mmol/L (3.5-5.1); Sodium 142 mmol/L (136-145)
== END 2022-01-20 15:26 | disposition home or self-care (01) ==
LOC: LABBT 15:25
PROVIDERS: ATTEND Specialist
DX: Z01.818 Encounter for other preprocedural examination (principal); I47.1 Supraventricular tachycardia
CPT/HCPCS: 80048; 85025; 85610; 85730; 93005; 93010

== ENCOUNTER 2022-01-23 10:14 | Day surgery (SDC) | payer BC ==
[2022-01-20 08:55] VITALS: BMI 36.6
[2022-01-23] MEDS ORDERED: Lidocaine 1% (PF) 30 ML VIAL ONE (10:43)
[2022-01-23] MEDS ORDERED: Isoproterenol 0.2 MG/1 ML AMP ONE (10:43)
[2022-01-23] MEDS ORDERED: Heparin 10,000 UNITS/ 10 ML VIAL ONE (10:43)
[2022-01-23] MEDS ORDERED: Midazolam HCl 2 mg/2 ml Vial ONE ×2 (11:45→12:14)
[2022-01-23] MEDS ORDERED: fentaNYL Citrate/PF 100 MCG/2 ML SYRINGE ONE ×2 (11:58→13:56)
[2022-01-23] MEDS ORDERED: Phenylephrine 10 MG/ML VIAL ONE (11:59)
[2022-01-23] MEDS ORDERED: Dexamethasone 20 MG/5 ML VIAL ONE (12:13)
[2022-01-23] MEDS ORDERED: PROPOFOL 200 MG/20 ML VIAL ONE (12:13)
[2022-01-23] MEDS ORDERED: Ondansetron PF 4 MG/2 ML Vial ONE (12:13)
[2022-01-23] MEDS ORDERED: PHENYLEPHRINE-NS 100 MCG/ML 10 ML SYRINGE ONE (12:13)
[2022-01-23] MEDS ORDERED: ePHEDrine 50 MG/ML VIAL ONE (12:13)
[2022-01-23] MEDS ORDERED: Albuterol Sulfate 2.5 mg/3 ml Neb ONE (16:12)
== END 2022-01-23 16:45 | disposition home or self-care (01) ==
LOC: SDC 10:14
PROVIDERS: ATTEND Specialist
PROC: 02K83ZZ Map Conduction Mechanism, Percutaneous Approach (ICD-10-PCS; principal; 2022-01-23)
PROC: 4A0234Z Measurement of Cardiac Electrical Activity, Percutaneous Approach (ICD-10-PCS; principal; 2022-01-23)
PROC: 02583ZZ Destruction of Conduction Mechanism, Percutaneous Approach (ICD-10-PCS; principal; 2022-01-23)
PROC: 4A023FZ Measurement of Cardiac Rhythm, Percutaneous Approach (ICD-10-PCS; principal; 2022-01-23)
DX: I47.1 Supraventricular tachycardia (principal); I95.1 Orthostatic hypotension; I49.5 Sick sinus syndrome; I10 Essential (primary) hypertension; E03.9 Hypothyroidism, unspecified; M19.90 Unspecified osteoarthritis, unspecified site; Z79.890 Hormone replacement therapy; Z79.899 Other long term (current) drug therapy; Z88.6 Allergy status to analgesic agent; Z88.8 Allergy status to other drugs, medicaments and biological substances; Z91.013 Allergy to seafood; Z91.048 Other nonmedicinal substance allergy status; Z95.0 Presence of cardiac pacemaker; Z90.5 Acquired absence of kidney
CPT/HCPCS: 93005; 93010; 93623; 93653; C1730; C1732; C1760; C1769; J0153; J1644; J2001; J2250; J2370; J7611

== ENCOUNTER 2022-05-15 16:01 | Outpatient (CLI) | payer BC | END 2022-05-15 16:02 | disposition home or self-care (01) | LOC: MRI 16:01 | PROVIDERS: ATTEND Family Medicine | DX: M25.372 Other instability, left ankle (principal) ==

== ENCOUNTER 2022-10-20 11:24 | Outpatient (CLI) | payer BC | END 2022-10-20 11:25 | disposition home or self-care (01) | LOC: BICMAMMO 11:24 | PROVIDERS: ATTEND Internal Medicine | DX: Z12.31 Encounter for screening mammogram for malignant neoplasm of breast (principal); Z80.3 Family history of malignant neoplasm of breast | CPT/HCPCS: 77063; 77067 ==

== ENCOUNTER 2023-09-21 07:30 | Outpatient (CLI) | payer BC | END 2023-09-21 07:31 | disposition home or self-care (01) | LOC: NM 07:30 | PROVIDERS: ATTEND Physician Assistant Medical | DX: R10.13 Epigastric pain (principal); R11.0 Nausea | CPT/HCPCS: 78264; A9541 ==